=== PATIENT | male | born 1995 | race Caucasian/White ===

== ENCOUNTER 2022-12-12 23:46 | Inpatient (IN) | payer OTHER ==
[~2022-12-12] VITALS: Ht 172.7 cm; Wt 84.8 kg
[2022-12-12 00:05] VITALS: PULSE 112; RESP 18; O2SAT 100
[2022-12-12 23:35] VITALS: PULSE 72; RESP 20; O2SAT 100
[2022-12-13] VITALS (10 sets, daily range): BP systolic 98–124; BP diastolic 43–58; PULSE 91–113; RESP 18; TEMP 96.9–97.5; O2SAT 94–100
[2022-12-13 00:12] LABS: LYMPHOCYTES # (AUTO) 6.1 K/uL (1.0-4.8); MEAN CORPUSCULAR VOLUME 99 fL (80-100); MONOCYTES # (AUTO) 0.4 K/uL (0.1-1.0)
[2022-12-13 00:16] LABS: BASOPHILS % (AUTO) 0.7 % (0.0-2.0); EOSINOPHILS % (AUTO) 1.9 % (1.0-6.0); HEMATOCRIT 49.7 % (41-53); HEMOGLOBIN 14.7 g/dL (13.5-17.5); LYMPHOCYTES % (AUTO) 31.8 % (22.0-44.0); MEAN CORPUSCULAR HEMOGLOBIN 29.3 pg (26.0-34.0); MEAN CORPUSCULAR HGB CONC 29.5 G/dL (31.0-37.0); NEUTROPHILS # (AUTO) 12.2 K/uL (1.8-7.7); NEUTROPHILS % (AUTO) 63.6 % (40.0-70.0); PLATELET COUNT (AUTO) 214 K/uL (150-450); RED CELL DISTRIBUTION WIDTH 15.4 % (11.5-14.5)
[2022-12-13 00:17] LABS: APPEARANCE,URINE CLEAR (CLEAR); BILIRUBIN,URINE NEGATIVE (NEGATIVE); GLUCOSE, URINE (UA) NEGATIVE (NEGATIVE); KETONES,URINE NEGATIVE (NEGATIVE); LEUKOCYTE ESTERASE ,URINE NEGATIVE (NEGATIVE); NITRATE,URINE NEGATIVE (NEGATIVE); OCCULT BLOOD,URINE NEGATIVE (NEGATIVE); PH,URINE 6.5 (5.0-8.0); PROTEIN,URINE TRACE mg/dL (NEGATIVE); SPECIFIC GRAVITIY, URINE 1.032 (1.003-1.030); UROBILINOGEN,URINE <=1.0 mg/dL (<=1.0)
[2022-12-13 00:24] LABS: ANION GAP 26 mmol/L (8-16); CARBON DIOXIDE 16 mmol/L (22-29); CHLORIDE 103 mmol/L (98-107); CREATININE 2.09 mg/dL (0.60-1.30); GLOMERULAR FILTR. RATE CALC 38 mL/min (>60); GLUCOSE,RANDOM 222 mg/dL (70-110); POTASSIUM 4.8 mmol/L (3.5-5.1); SODIUM SERUM 145 mmol/L (136-145)
[2022-12-13 00:24] LABS: AMPHET/METH SCREEN,URINE NEGATIVE (NEGATIVE); BARBITURATE SCREEN, URINE NEGATIVE (NEGATIVE); BENZODIAZEPINES SCREEN,URINE NEGATIVE (NEGATIVE); CANNABINOID SCREEN,URINE POSITIVE (NEGATIVE); COCAINE SCREEN,URINE NEGATIVE (NEGATIVE); METHADONE SCREEN, URINE NEGATIVE (NEGATIVE); OPIATE SCREEN,URINE NEGATIVE (NEGATIVE); PHENCYCLIDINE SCREEN,URINE NEGATIVE (NEGATIVE)
[2022-12-13 00:35] LABS: BACTERIA,URINE None Seen /HPF (None Seen); RBC,URINE 0-2 /HPF (0-2); SQUAMOUS EPITHELIAL CELL,UR Rare /LPF (None Seen); WBC,URINE 0-2 /HPF (0-5)
[2022-12-13 00:49] LABS: ALANINE AMINOTRANSFERASE 228 U/L (12-78); ALBUMIN 3.5 g/dL (3.4-5.0); ALKALINE PHOSPHATASE 89 U/L (46-116); ASPARTATE AMINOTRANSFERASE 272 U/L (15-37); BILIRUBIN,TOTAL 0.8 mg/dL (0.1-1.0); LIPASE 225 U/L (73-393); TOTAL PROTEIN, SERUM 6.9 g/dL (6.4-8.2)
[2022-12-13 00:52] LABS: CREATINE KINASE, TOTAL ONLY 2174 U/L (39-308)
[2022-12-13 00:54] LABS: LACTIC ACID 21.7 mmol/L (0.4-2.0)
[2022-12-13 02:15] LABS: ABG BASE EXCESS -10.4 mmol/L (-2.0-3.0); ABG CARBOXYHEMOGLOBIN 1.2 % (0.0-3.0); ABG HCO3 16.3 mmol/L (22.0-26.0); ABG METHEMOGLOBIN 0.5 % (0.0-1.5); ABG OXYGEN CONTENT 23.5 mL/dL (15.0-23.0); ABG OXYGEN SATURATION 99.1 % (95.0-98.0); ABG OXYHEMOGLOBIN 97.4 % (94.0-100.0); ABG PCO2 47 mmHg (35-45); ABG TOTAL HEMOGLOBIN 16.8 G/dL (12.0-18.0); PO2, ARTERIAL BG 235.1 mmHg (80.0-100.0); SOURCE, BLOOD GAS ARTERIAL; TEMPERATURE, FAHRENHEIT, BG 95.2 FAHREN (96.0-98.6)
[2022-12-13 02:17] LABS: ABG PH 7.197 (7.350-7.450); O2 DEVICE,BLOOD GAS VENTILATOR (ROOM AIR); PEEP,BG 5 cm H2O; SITE, BLOOD GAS RT RADIAL; VT, ABG 450 ml
[2022-12-13 03:07] LABS: COVID AG,FIA SOURCE NASOPHARYNGEAL
[2022-12-13] MEDS: PIPERACILLIN/TAZO 3.375 GM/D5W 50 ML IV SCH ×4 (03:35→23:32)
[2022-12-13 04:46] LABS: ABG BASE EXCESS -11.4 mmol/L (-2.0-3.0); ABG CARBOXYHEMOGLOBIN 0.5 % (0.0-3.0); ABG HCO3 16.2 mmol/L (22.0-26.0); ABG METHEMOGLOBIN 0.4 % (0.0-1.5); ABG OXYGEN CONTENT 23.1 mL/dL (15.0-23.0); ABG OXYGEN SATURATION 98.3 % (95.0-98.0); ABG OXYHEMOGLOBIN 97.4 % (94.0-100.0); ABG PCO2 38 mmHg (35-45); ABG TOTAL HEMOGLOBIN 16.7 G/dL (12.0-18.0); PO2, ARTERIAL BG 134.1 mmHg (80.0-100.0); TEMPERATURE, FAHRENHEIT, BG 95.1 FAHREN (96.0-98.6)
[2022-12-13 04:47] LABS: ABG PH 7.247 (7.350-7.450); O2 DEVICE,BLOOD GAS VENTILATOR (ROOM AIR); SITE, BLOOD GAS RT FEMORAL; SOURCE, BLOOD GAS ARTERIAL LINE; VT, ABG 500 ml
[2022-12-13 04:48] LABS: PEEP,BG 5 cm H2O; SPONTANEOUS VT, BG 502 ml
[2022-12-13] MEDS ORDERED: SODIUM CHLORIDE 0.9% 1,000 ML IV ONE ×2 (05:15)
[2022-12-13] MEDS: NOREPINEPHRINE 8 MG/0.9 % NACL 250 ML IV PRN ×2 (07:45→16:00)
[2022-12-13] MEDS: PHENYLEPHRINE 200 MG/D5%-WATER 250 ML IV PRN (08:44)
[2022-12-13] MEDS ORDERED: HYDROCODONE/ACETAMINOPHEN 5-325 MG TABLET PO PRN (09:00)
[2022-12-13] MEDS ORDERED: ONDANSETRON HCL 4 MG/2 ML VIAL IVP PRN (09:00)
[2022-12-13] MEDS ORDERED: BISACODYL 10 MG RECTAL RECTAL SUPPOSITORY PR PRN (09:00)
[2022-12-13] MEDS ORDERED: MORPHINE SULFATE 2 MG/ML SYRINGE IVP PRN (09:00)
[2022-12-13] MEDS ORDERED: ZOLPIDEM TARTRATE 5 MG TABLET PO PRN (09:00)
[2022-12-13] MEDS ORDERED: PANTOPRAZOLE SODIUM 40 MG DR TABLET PO SCH (09:00)
[2022-12-13] MEDS ORDERED: ACETAMINOPHEN 325 MG TABLET PO PRN (09:00)
[2022-12-13] MEDS ORDERED: MAGNESIUM HYDROXIDE SUSPENSION 30 ML UDCUP PO PRN (09:00)
[2022-12-13] MEDS: DOCUSATE SODIUM 100 MG CAPSULE PO SCH ×2 (09:00→19:47)
[2022-12-13] MEDS: DEXTROSE IV SCH (12:22)
[2022-12-13] MEDS: SODIUM BICARBONATE IV SCH (12:22)
[2022-12-13] MEDS: SODIUM CHL IV SCH (12:22)
[2022-12-13] MEDS: PANTOPRAZOLE SODIUM 80 MG in SODIUM CHLORIDE 0.9% 100 ML IV SCH (15:40)
[2022-12-13] MEDS ORDERED: NOREPINEPHRINE 8 MG/0.9 % NACL 250 ML IV ONE (15:48)
[2022-12-13 15:59] LABS: CREATININE 3.97 mg/dL (0.60-1.30); MAGNESIUM 2.4 mg/dL (1.80-2.40); PHOSPHORUS 3.8 mg/dL (2.5-4.9); POTASSIUM 3.3 mmol/L (3.5-5.1)
[2022-12-13] MEDS ORDERED: HEPARIN SODIUM,PORCINE 5,000 UNITS/ML VIAL SQ SCH (16:00)
[2022-12-13] MEDS ORDERED: NOREPINEPHRINE 8 MG/0.9 % NACL 250 ML IV PRN (16:00)
[2022-12-13] MEDS ORDERED: SODIUM CHLORIDE 0.9% 250 ML IV ONE (23:34)
[2022-12-14] VITALS (14 sets, daily range): BP systolic 90–126; BP diastolic 44–61; PULSE 88–103; RESP 18; TEMP 95.2–96.6; O2SAT 99–100
[2022-12-14] MEDS: PANTOPRAZOLE SODIUM 80 MG in SODIUM CHLORIDE 0.9% 100 ML IV SCH ×3 (00:08→20:21)
[2022-12-14] MEDS: SODIUM BICARBONATE IV SCH ×2 (02:09→15:10)
[2022-12-14] MEDS: DEXTROSE IV SCH ×2 (02:09→15:10)
[2022-12-14] MEDS: SODIUM CHL IV SCH ×2 (02:09→15:10)
[2022-12-14] MEDS: PIPERACILLIN/TAZO 3.375 GM/D5W 50 ML IV SCH ×4 (04:48→23:19)
[2022-12-14 05:29] LABS: BASOPHILS % (AUTO) 0.3 % (0.0-2.0); EOSINOPHILS % (AUTO) 0.6 % (1.0-6.0); HEMOGLOBIN 18.2 g/dL (13.5-17.5); LYMPHOCYTES # (AUTO) 1.1 K/uL (1.0-4.8); LYMPHOCYTES % (AUTO) 5.4 % (22.0-44.0); MEAN CORPUSCULAR HEMOGLOBIN 29.2 pg (26.0-34.0); MEAN CORPUSCULAR HGB CONC 32.6 G/dL (31.0-37.0); MEAN CORPUSCULAR VOLUME 90 fL (80-100); MONOCYTES # (AUTO) 0.5 K/uL (0.1-1.0); MONOCYTES % (AUTO) 2.4 % (2.0-9.0); NEUTROPHILS # (AUTO) 18.4 K/uL (1.8-7.7); PLATELET COUNT (AUTO) 157 K/uL (150-450); RED BLOOD CELL COUNT(AUTO) 6.24 MIL/uL (4.50-5.90); RED CELL DISTRIBUTION WIDTH 14.3 % (11.5-14.5)
[2022-12-14 05:49] LABS: CALCIUM, TOTAL 6.5 mg/dL (8.8-10.5); CREATININE 5.2 mg/dL (0.60-1.30); POTASSIUM 3.6 mmol/L (3.5-5.1)
[2022-12-14 06:05] LABS: NEUTROPHILS % (AUTO) 91.3 % (40.0-70.0)
[2022-12-14] MEDS: DOCUSATE SODIUM 100 MG CAPSULE PO SCH ×2 (08:52→20:17)
[2022-12-14] MEDS ORDERED: SODIUM CHLORIDE 0.9% 100 ML ONE (09:29)
[2022-12-14] MEDS ORDERED: IOHEXOL 350 MG/ML 100 ML VIAL ONE (09:29)
[2022-12-14 14:11] LABS: ABG A-A DIFF O2 78.4 mmHg (10-20.0); ABG BASE EXCESS -12.2 mmol/L (-2.0-3.0); ABG CARBOXYHEMOGLOBIN 0.2 % (0.0-3.0); ABG HCO3 16.1 mmol/L (22.0-26.0); ABG METHEMOGLOBIN 0.4 % (0.0-1.5); ABG OXYGEN CONTENT 27.2 mL/dL (15.0-23.0); ABG OXYGEN SATURATION 98.7 % (95.0-98.0); ABG OXYHEMOGLOBIN 98.1 % (94.0-100.0); ABG PCO2 35 mmHg (35-45); ABG PH 7.255 (7.350-7.450); ABG TOTAL HEMOGLOBIN 19.6 G/dL (12.0-18.0); O2 DEVICE,BLOOD GAS VENTILATOR (ROOM AIR); PEEP,BG 5 cm H2O; PO2, ARTERIAL BG 132.6 mmHg (80.0-100.0); SITE, BLOOD GAS ARTERIAL LINE; SOURCE, BLOOD GAS ARTERIAL; VT, ABG 500 ml
[2022-12-15] VITALS (15 sets, daily range): BP systolic 86–133; BP diastolic 53–75; PULSE 84–94; RESP 18; TEMP 96–96.6; O2SAT 95–100
[2022-12-15 05:26] LABS: BASOPHILS % (AUTO) 0.5 % (0.0-2.0); EOSINOPHILS % (AUTO) 4.1 % (1.0-6.0); HEMOGLOBIN 16.9 g/dL (13.5-17.5); LYMPHOCYTES % (AUTO) 6.6 % (22.0-44.0); MEAN CORPUSCULAR HEMOGLOBIN 29.2 pg (26.0-34.0); MEAN CORPUSCULAR HGB CONC 33.1 G/dL (31.0-37.0); MEAN CORPUSCULAR VOLUME 88 fL (80-100); MONOCYTES # (AUTO) 0.7 K/uL (0.1-1.0); MONOCYTES % (AUTO) 4.3 % (2.0-9.0); NEUTROPHILS # (AUTO) 13.2 K/uL (1.8-7.7); NEUTROPHILS % (AUTO) 84.5 % (40.0-70.0); PLATELET COUNT (AUTO) 99 K/uL (150-450); RED BLOOD CELL COUNT(AUTO) 5.78 MIL/uL (4.50-5.90); RED CELL DISTRIBUTION WIDTH 14.3 % (11.5-14.5)
[2022-12-15 05:40] LABS: MAGNESIUM 1.7 mg/dL (1.80-2.40); PHOSPHORUS 4.4 mg/dL (2.5-4.9)
[2022-12-15 05:44] LABS: CALCIUM, TOTAL 6.5 mg/dL (8.8-10.5)
[2022-12-15 05:50] LABS: POTASSIUM 2.9 mmol/L (3.5-5.1)
[2022-12-15 05:57] LABS: PLATELET MORPHOLOGY COMMENT LARGE PLTS PRESENT
[2022-12-15] MEDS: DEXTROSE IV SCH ×2 (06:03→19:52)
[2022-12-15] MEDS: SODIUM CHL IV SCH ×2 (06:03→19:52)
[2022-12-15] MEDS: SODIUM BICARBONATE IV SCH ×2 (06:03→19:52)
[2022-12-15] MEDS: PIPERACILLIN/TAZO 3.375 GM/D5W 50 ML IV SCH ×2 (06:08→11:28)
[2022-12-15] MEDS ORDERED: POTASSIUM CHL 10 MEQ/WATER 50 ML IV ONE ×2 (06:30→17:45)
[2022-12-15] MEDS: PANTOPRAZOLE SODIUM 80 MG in SODIUM CHLORIDE 0.9% 100 ML IV SCH ×2 (08:20→19:51)
[2022-12-15] MEDS: DOCUSATE SODIUM 100 MG CAPSULE PO SCH ×2 (09:00→19:52)
[2022-12-15] MEDS: PHENYLEPHRINE 200 MG/D5%-WATER 250 ML IV PRN (19:54)
[2022-12-15] MEDS: PIPERACILLIN SODIUM/TAZOBACTAM 2.25 GM in DEXTROSE 5%-WATER 50 ML IV SCH (22:57)
[2022-12-16] VITALS (14 sets, daily range): BP systolic 110–139; BP diastolic 60–78; PULSE 95–122; RESP 18; TEMP 95–98.6; O2SAT 98–100
[2022-12-16] MEDS ORDERED: SODIUM CHLORIDE 0.9% 250 ML IV ONE ×2 (03:56→06:39)
[2022-12-16] MEDS: PIPERACILLIN SODIUM/TAZOBACTAM 2.25 GM in DEXTROSE 5%-WATER 50 ML IV SCH ×3 (05:13→21:59)
[2022-12-16] MEDS: PANTOPRAZOLE SODIUM 80 MG in SODIUM CHLORIDE 0.9% 100 ML IV SCH ×2 (05:13→15:36)
[2022-12-16 06:15] LABS: BASOPHILS % (AUTO) 0.3 % (0.0-2.0); EOSINOPHILS % (AUTO) 3.4 % (1.0-6.0); HEMATOCRIT 48.2 % (41-53); HEMOGLOBIN 15.8 g/dL (13.5-17.5); LYMPHOCYTES # (AUTO) 0.6 K/uL (1.0-4.8); LYMPHOCYTES % (AUTO) 4.9 % (22.0-44.0); MEAN CORPUSCULAR HEMOGLOBIN 28.6 pg (26.0-34.0); MEAN CORPUSCULAR HGB CONC 32.9 G/dL (31.0-37.0); MEAN CORPUSCULAR VOLUME 87 fL (80-100); MONOCYTES # (AUTO) 0.6 K/uL (0.1-1.0); MONOCYTES % (AUTO) 4.5 % (2.0-9.0); NEUTROPHILS # (AUTO) 10.9 K/uL (1.8-7.7); RED BLOOD CELL COUNT(AUTO) 5.53 MIL/uL (4.50-5.90); RED CELL DISTRIBUTION WIDTH 14.2 % (11.5-14.5)
[2022-12-16 06:30] LABS: CALCIUM, TOTAL 6.7 mg/dL (8.8-10.5); CREATININE 9.46 mg/dL (0.60-1.30); POTASSIUM 4.2 mmol/L (3.5-5.1)
[2022-12-16 06:40] LABS: NEUTROPHILS % (AUTO) 86.9 % (40.0-70.0)
[2022-12-16 06:41] LABS: PLATELET COUNT (AUTO) 89 K/uL (150-450); PLATELET MORPHOLOGY COMMENT LARGE PLTS PRESENT
[2022-12-16 06:51] LABS: MAGNESIUM 1.4 mg/dL (1.80-2.40); PHOSPHORUS 5.3 mg/dL (2.5-4.9)
[2022-12-16] MEDS: DOCUSATE SODIUM 100 MG CAPSULE PO SCH ×2 (08:33→20:25)
[2022-12-16] MEDS: SODIUM CHL IV SCH (11:54)
[2022-12-16] MEDS: DEXTROSE IV SCH (11:54)
[2022-12-16] MEDS: SODIUM BICARBONATE IV SCH (11:54)
[2022-12-16] MEDS: PHENYLEPHRINE 200 MG/D5%-WATER 250 ML IV PRN (15:36)
[2022-12-16] MEDS ORDERED: SODIUM CHLORIDE 0.9% 500 ML IV ONE (20:03)
[2022-12-16] MEDS ORDERED: FUROSEMIDE 40 MG/4 ML VIAL IVP ONE (21:45)
[2022-12-16 22:05] LABS: BASOPHILS % (AUTO) 0.3 % (0.0-2.0); EOSINOPHILS % (AUTO) 3.5 % (1.0-6.0); HEMATOCRIT 43.9 % (41-53); HEMOGLOBIN 14.1 g/dL (13.5-17.5); LYMPHOCYTES # (AUTO) 0.8 K/uL (1.0-4.8); MEAN CORPUSCULAR HEMOGLOBIN 28.1 pg (26.0-34.0); MEAN CORPUSCULAR HGB CONC 32.1 G/dL (31.0-37.0); MEAN CORPUSCULAR VOLUME 88 fL (80-100); MONOCYTES # (AUTO) 0.9 K/uL (0.1-1.0); MONOCYTES % (AUTO) 6.4 % (2.0-9.0); NEUTROPHILS # (AUTO) 11.2 K/uL (1.8-7.7); NEUTROPHILS % (AUTO) 83.8 % (40.0-70.0); PLATELET COUNT (AUTO) 77 K/uL (150-450); RED BLOOD CELL COUNT(AUTO) 5.01 MIL/uL (4.50-5.90); RED CELL DISTRIBUTION WIDTH 14.3 % (11.5-14.5)
[2022-12-16 22:14] LABS: INR 1.7 (0.9-1.1); PROTHROMBIN TIME 16.9 SEC (9.4-11.6)
[2022-12-16 22:15] LABS: ALBUMIN 1.6 g/dL (3.4-5.0); BILIRUBIN,TOTAL 5.6 mg/dL (0.1-1.0); CALCIUM, TOTAL 6.4 mg/dL (8.8-10.5); CREATININE 10.97 mg/dL (0.60-1.30); POTASSIUM 5.5 mmol/L (3.5-5.1); TOTAL PROTEIN, SERUM 4.8 g/dL (6.4-8.2)
[2022-12-16 22:21] LABS: ABG BASE EXCESS -6.5 mmol/L (-2.0-3.0); ABG CARBOXYHEMOGLOBIN 0.8 % (0.0-3.0); ABG HCO3 19.4 mmol/L (22.0-26.0); ABG METHEMOGLOBIN 0.1 % (0.0-1.5); ABG OXYGEN CONTENT 20.7 mL/dL (15.0-23.0); ABG OXYGEN SATURATION 98.3 % (95.0-98.0); ABG OXYHEMOGLOBIN 97.4 % (94.0-100.0); ABG PCO2 44 mmHg (35-45); PO2, ARTERIAL BG 114.6 mmHg (80.0-100.0); SOURCE, BLOOD GAS ARTERIAL
[2022-12-16 22:28] LABS: PLATELET MORPHOLOGY COMMENT LARGE PLTS PRESENT
[2022-12-16 22:29] LABS: ABG PH 7.284 (7.350-7.450); SITE, BLOOD GAS ALINE
[2022-12-16 22:30] LABS: O2 DEVICE,BLOOD GAS VENT (ROOM AIR); TEMPERATURE, FAHRENHEIT, BG 98.6 FAHREN (96.0-98.6)
[2022-12-16 22:31] LABS: PEEP,BG 5 cm H2O; VT, ABG 500 ml
[2022-12-17] VITALS (17 sets, daily range): BP systolic 130–184; BP diastolic 70–90; PULSE 92–130; RESP 14–22; TEMP 96.8–100; O2SAT 98–100
[2022-12-17] MEDS: DEXTROSE IV SCH (01:10)
[2022-12-17] MEDS: SODIUM BICARBONATE IV SCH (01:10)
[2022-12-17] MEDS: SODIUM CHL IV SCH (01:10)
[2022-12-17] MEDS: PANTOPRAZOLE SODIUM 80 MG in SODIUM CHLORIDE 0.9% 100 ML IV SCH (02:03)
[2022-12-17 05:35] LABS: EOSINOPHILS % (AUTO) 1.3 % (1.0-6.0); HEMOGLOBIN 13.7 g/dL (13.5-17.5); LYMPHOCYTES # (AUTO) 0.5 K/uL (1.0-4.8); LYMPHOCYTES % (AUTO) 4.4 % (22.0-44.0); MEAN CORPUSCULAR HEMOGLOBIN 29.2 pg (26.0-34.0); MEAN CORPUSCULAR HGB CONC 33.3 G/dL (31.0-37.0); MEAN CORPUSCULAR VOLUME 88 fL (80-100); NEUTROPHILS # (AUTO) 10.5 K/uL (1.8-7.7); PLATELET COUNT (AUTO) 70 K/uL (150-450); RED BLOOD CELL COUNT(AUTO) 4.68 MIL/uL (4.50-5.90); RED CELL DISTRIBUTION WIDTH 14.3 % (11.5-14.5)
[2022-12-17] MEDS: PIPERACILLIN SODIUM/TAZOBACTAM 2.25 GM in DEXTROSE 5%-WATER 50 ML IV SCH ×3 (05:44→21:09)
[2022-12-17 05:47] LABS: ABG BASE EXCESS -6.5 mmol/L (-2.0-3.0); ABG CARBOXYHEMOGLOBIN 0.8 % (0.0-3.0); ABG HCO3 19.8 mmol/L (22.0-26.0); ABG METHEMOGLOBIN 0.1 % (0.0-1.5); ABG OXYGEN CONTENT 19.9 mL/dL (15.0-23.0); ABG OXYGEN SATURATION 98.7 % (95.0-98.0); ABG OXYHEMOGLOBIN 97.8 % (94.0-100.0); ABG PCO2 36 mmHg (35-45); ABG PH 7.344 (7.350-7.450); ABG TOTAL HEMOGLOBIN 14.3 G/dL (12.0-18.0); SOURCE, BLOOD GAS ARTERIAL; TEMPERATURE, FAHRENHEIT, BG 98.6 FAHREN (96.0-98.6)
[2022-12-17 05:48] LABS: O2 DEVICE,BLOOD GAS VENTILATOR (ROOM AIR); PEEP,BG 5 cm H2O; SITE, BLOOD GAS ARTERIAL LINE; VT, ABG 500 ml
[2022-12-17 05:49] LABS: NEUTROPHILS % (AUTO) 85.3 % (40.0-70.0)
[2022-12-17 05:52] LABS: ALBUMIN 1.6 g/dL (3.4-5.0); BILIRUBIN,TOTAL 5.6 mg/dL (0.1-1.0); CALCIUM, TOTAL 6.4 mg/dL (8.8-10.5); CREATININE 11.73 mg/dL (0.60-1.30); POTASSIUM 5.2 mmol/L (3.5-5.1); TOTAL PROTEIN, SERUM 4.8 g/dL (6.4-8.2)
[2022-12-17 05:54] LABS: INR 1.6 (0.9-1.1); PROTHROMBIN TIME 15.9 SEC (9.4-11.6)
[2022-12-17] MEDS: DOCUSATE SODIUM 100 MG CAPSULE PO SCH ×2 (08:49→21:00)
[2022-12-17 10:23] LABS: HEMATOCRIT 39.2 % (41-53); HEMOGLOBIN 12.9 g/dL (13.5-17.5); MEAN CORPUSCULAR HEMOGLOBIN 28.6 pg (26.0-34.0); MEAN CORPUSCULAR VOLUME 87 fL (80-100); PLATELET COUNT (AUTO) 67 K/uL (150-450); RED BLOOD CELL COUNT(AUTO) 4.52 MIL/uL (4.50-5.90); RED CELL DISTRIBUTION WIDTH 14.6 % (11.5-14.5)
[2022-12-17 10:41] LABS: INR 1.5 (0.9-1.1); PROTHROMBIN TIME 15.4 SEC (9.4-11.6)
[2022-12-17 10:54] LABS: ALBUMIN 1.4 g/dL (3.4-5.0); BILIRUBIN,TOTAL 5.3 mg/dL (0.1-1.0); CALCIUM, TOTAL 6.3 mg/dL (8.8-10.5); CREATININE 11.91 mg/dL (0.60-1.30); POTASSIUM 4.2 mmol/L (3.5-5.1); TOTAL PROTEIN, SERUM 4.6 g/dL (6.4-8.2)
[2022-12-17 12:03] LABS: ABG BASE EXCESS -2.6 mmol/L (-2.0-3.0); ABG CARBOXYHEMOGLOBIN 0.7 % (0.0-3.0); ABG METHEMOGLOBIN 0.3 % (0.0-1.5); ABG OXYGEN CONTENT 18.9 mL/dL (15.0-23.0); ABG OXYGEN SATURATION 98.9 % (95.0-98.0); ABG OXYHEMOGLOBIN 97.9 % (94.0-100.0); ABG PCO2 33 mmHg (35-45); ABG PH 7.437 (7.350-7.450); ABG TOTAL HEMOGLOBIN 13.6 G/dL (12.0-18.0); PO2, ARTERIAL BG 136.5 mmHg (80.0-100.0); SOURCE, BLOOD GAS ARTERIAL
[2022-12-17 12:04] LABS: ABG A-A DIFF O2 75.3 mmHg (10-20.0); O2 DEVICE,BLOOD GAS VENTILATOR (ROOM AIR); SITE, BLOOD GAS ARTERIAL LINE; VT, ABG 500 ml
[2022-12-17 12:05] LABS: PEEP,BG 5 cm H2O; SPONTANEOUS VT, BG 509 ml
[2022-12-17 12:22] LABS: BAND NEUTROPHILS % (MANUAL) 29 % (0-5); LYMPHOCYTES % (MANUAL) 9 % (22-44); MONOCYTES % (MANUAL) 2 % (2-9); SEGMENTED NEUTROPHILS % 60 % (40-70)
[2022-12-17 15:15] LABS: ABG CARBOXYHEMOGLOBIN 0.5 % (0.0-3.0); ABG HCO3 25.1 mmol/L (22.0-26.0); ABG METHEMOGLOBIN 0.3 % (0.0-1.5); ABG OXYGEN CONTENT 18.8 mL/dL (15.0-23.0); ABG OXYGEN SATURATION 98.9 % (95.0-98.0); ABG OXYHEMOGLOBIN 98.1 % (94.0-100.0); ABG PCO2 33 mmHg (35-45); ABG PH 7.468 (7.350-7.450); ABG TOTAL HEMOGLOBIN 13.5 G/dL (12.0-18.0); PO2, ARTERIAL BG 140.9 mmHg (80.0-100.0); SITE, BLOOD GAS ARTERIAL LINE; SOURCE, BLOOD GAS ARTERIAL; TEMPERATURE, FAHRENHEIT, BG 98.7 FAHREN (96.0-98.6)
[2022-12-17 15:16] LABS: ABG A-A DIFF O2 69.7 mmHg (10-20.0); O2 DEVICE,BLOOD GAS VENTILATOR (ROOM AIR); PEEP,BG 5 cm H2O; SPONTANEOUS VT, BG 605 ml; VT, ABG 600 ml
[2022-12-17 15:53] LABS: ABG CARBOXYHEMOGLOBIN 0.6 % (0.0-3.0); ABG HCO3 25.1 mmol/L (22.0-26.0); ABG METHEMOGLOBIN 0.3 % (0.0-1.5); ABG OXYGEN CONTENT 20.1 mL/dL (15.0-23.0); ABG OXYGEN SATURATION 99.8 % (95.0-98.0); ABG OXYHEMOGLOBIN 98.9 % (94.0-100.0); ABG PCO2 34 mmHg (35-45); ABG PH 7.464 (7.350-7.450); ABG TOTAL HEMOGLOBIN 13.5 G/dL (12.0-18.0); PO2, ARTERIAL BG 501.3 mmHg (80.0-100.0); SOURCE, BLOOD GAS ARTERIAL
[2022-12-17 15:54] LABS: ABG A-A DIFF O2 177.2 mmHg (10-20.0); O2 DEVICE,BLOOD GAS VENTILATOR (ROOM AIR); SITE, BLOOD GAS ARTERIAL LINE; VT, ABG 600 ml
[2022-12-17 15:55] LABS: PEEP,BG 5 cm H2O; SPONTANEOUS VT, BG 612 ml
[2022-12-17 16:14] LABS: HEMOGLOBIN 12.9 g/dL (13.5-17.5); MEAN CORPUSCULAR HEMOGLOBIN 29.1 pg (26.0-34.0); MEAN CORPUSCULAR VOLUME 86 fL (80-100); RED BLOOD CELL COUNT(AUTO) 4.44 MIL/uL (4.50-5.90); RED CELL DISTRIBUTION WIDTH 13.9 % (11.5-14.5)
[2022-12-17 16:19] LABS: PLATELET COUNT (AUTO) 66 K/uL (150-450)
[2022-12-17 16:27] LABS: INR 1.5 (0.9-1.1); PROTHROMBIN TIME 15.1 SEC (9.4-11.6)
[2022-12-17 16:30] LABS: CREATININE 12.45 mg/dL (0.60-1.30); POTASSIUM 4.1 mmol/L (3.5-5.1)
[2022-12-17] MEDS ORDERED: ALBUMIN HUMAN 25%-50GM/200ML 200 ML IV ONE (16:30)
[2022-12-17] MEDS ORDERED: FUROSEMIDE 100 MG/10 ML VIAL IVP ONE (16:30)
[2022-12-17] MEDS ORDERED: MethylPREDNISolone SOD SUCC 1,000 MG in SODIUM CHLORIDE 0.9% 50 ML IV ONE (16:30)
[2022-12-17 16:31] LABS: ALBUMIN 1.4 g/dL (3.4-5.0); BILIRUBIN,TOTAL 5.4 mg/dL (0.1-1.0); CALCIUM, TOTAL 6.5 mg/dL (8.8-10.5); PHOSPHORUS 4.7 mg/dL (2.5-4.9); TOTAL PROTEIN, SERUM 4.8 g/dL (6.4-8.2)
[2022-12-17 16:46] LABS: CREATINE KINASE, TOTAL ONLY 727 U/L (39-308)
[2022-12-17 16:49] LABS: BAND NEUTROPHILS % (MANUAL) 25 % (0-5); EOSINOPHILS % (MANUAL) 2 % (1-6); LYMPHOCYTES % (MANUAL) 10 % (22-44); MONOCYTES % (MANUAL) 3 % (2-9); SEGMENTED NEUTROPHILS % 60 % (40-70)
[2022-12-17 16:57] LABS: LACTIC ACID 2.6 mmol/L (0.4-2.0)
[2022-12-17 19:02] LABS: ABG BASE EXCESS -1.5 mmol/L (-2.0-3.0); ABG CARBOXYHEMOGLOBIN 0.5 % (0.0-3.0); ABG HCO3 23.2 mmol/L (22.0-26.0); ABG OXYGEN CONTENT 19.2 mL/dL (15.0-23.0); ABG OXYGEN SATURATION 98.4 % (95.0-98.0); ABG OXYHEMOGLOBIN 97.9 % (94.0-100.0); ABG PCO2 44 mmHg (35-45); ABG PH 7.356 (7.350-7.450); ABG TOTAL HEMOGLOBIN 13.8 G/dL (12.0-18.0); O2 DEVICE,BLOOD GAS VENTILATOR (ROOM AIR); PEEP,BG 5 cm H2O; PO2, ARTERIAL BG 131.5 mmHg (80.0-100.0); SITE, BLOOD GAS ARTERIAL LINE; SOURCE, BLOOD GAS ARTERIAL; TEMPERATURE, FAHRENHEIT, BG 98.6 FAHREN (96.0-98.6); VT, ABG 600 ml
[2022-12-17] MEDS: VANCOMYCIN 1GM/WATER(PEG/NADA) 200 ML IV SCH (19:06)
[2022-12-17] MEDS ORDERED: SODIUM CHLORIDE 0.9% 250 ML IV ONE (19:43)
[2022-12-17 20:34] LABS: HEMATOCRIT 38.3 % (41-53); HEMOGLOBIN 12.6 g/dL (13.5-17.5); MEAN CORPUSCULAR HEMOGLOBIN 28.4 pg (26.0-34.0); MEAN CORPUSCULAR VOLUME 86 fL (80-100); PLATELET COUNT (AUTO) 64 K/uL (150-450); RED BLOOD CELL COUNT(AUTO) 4.45 MIL/uL (4.50-5.90); RED CELL DISTRIBUTION WIDTH 14.1 % (11.5-14.5)
[2022-12-17 20:47] LABS: ALBUMIN 1.4 g/dL (3.4-5.0); BILIRUBIN,TOTAL 5.6 mg/dL (0.1-1.0); CALCIUM, TOTAL 6.5 mg/dL (8.8-10.5); CREATININE 12.98 mg/dL (0.60-1.30); PHOSPHORUS 5.5 mg/dL (2.5-4.9); POTASSIUM 4.3 mmol/L (3.5-5.1); TOTAL PROTEIN, SERUM 4.9 g/dL (6.4-8.2)
[2022-12-17 20:48] LABS: INR 1.4 (0.9-1.1); PROTHROMBIN TIME 14.8 SEC (9.4-11.6)
[2022-12-17 20:51] LABS: BAND NEUTROPHILS % (MANUAL) 13 % (0-5); EOSINOPHILS % (MANUAL) 2 % (1-6); LYMPHOCYTES % (MANUAL) 11 % (22-44); MONOCYTES % (MANUAL) 8 % (2-9); SEGMENTED NEUTROPHILS % 66 % (40-70)
[2022-12-17 21:07] LABS: MAGNESIUM 1.4 mg/dL (1.80-2.40)
[2022-12-17 21:14] LABS: LACTIC ACID 1.8 mmol/L (0.4-2.0)
[2022-12-17] MEDS ORDERED: LABETALOL HCL 5 MG/ML 20 ML VIAL IVP PRN (22:45)
[2022-12-17] MEDS ORDERED: SODIUM CHLORIDE 0.9% 1,000 ML ONE (22:47)
[2022-12-17 23:22] LABS: ABG BASE EXCESS -3.1 mmol/L (-2.0-3.0); ABG CARBOXYHEMOGLOBIN 0.6 % (0.0-3.0); ABG OXYGEN CONTENT 20.1 mL/dL (15.0-23.0); ABG OXYGEN SATURATION 98.7 % (95.0-98.0); ABG OXYHEMOGLOBIN 98.1 % (94.0-100.0); ABG PCO2 42 mmHg (35-45); ABG PH 7.348 (7.350-7.450); ABG TOTAL HEMOGLOBIN 14.4 G/dL (12.0-18.0); O2 DEVICE,BLOOD GAS VENTILATOR (ROOM AIR); PEEP,BG 5 cm H2O; PO2, ARTERIAL BG 138.5 mmHg (80.0-100.0); SITE, BLOOD GAS ARTERIAL LINE; SOURCE, BLOOD GAS ARTERIAL; TEMPERATURE, FAHRENHEIT, BG 98.6 FAHREN (96.0-98.6); VT, ABG 600 ml
[2022-12-18] VITALS (26 sets, daily range): BP systolic 90–156; BP diastolic 68–88; PULSE 61–101; RESP 14–16; TEMP 96.4–97.5; O2SAT 98–99
[2022-12-18 00:32] LABS: HEMATOCRIT 42.1 % (41-53); HEMOGLOBIN 14.1 g/dL (13.5-17.5); MEAN CORPUSCULAR HEMOGLOBIN 29.2 pg (26.0-34.0); MEAN CORPUSCULAR HGB CONC 33.5 G/dL (31.0-37.0); MEAN CORPUSCULAR VOLUME 87 fL (80-100); PLATELET COUNT (AUTO) 60 K/uL (150-450); RED BLOOD CELL COUNT(AUTO) 4.83 MIL/uL (4.50-5.90); RED CELL DISTRIBUTION WIDTH 14.4 % (11.5-14.5)
[2022-12-18 00:46] LABS: INR 1.3 (0.9-1.1); PROTHROMBIN TIME 13.8 SEC (9.4-11.6)
[2022-12-18 01:09] LABS: BAND NEUTROPHILS % (MANUAL) 24 % (0-5); LYMPHOCYTES % (MANUAL) 6 % (22-44); MONOCYTES % (MANUAL) 3 % (2-9); SEGMENTED NEUTROPHILS % 67 % (40-70)
[2022-12-18 01:11] LABS: POTASSIUM 4.2 mmol/L (3.5-5.1)
[2022-12-18 01:15] LABS: BILIRUBIN,DIRECT 5.6 mg/dL (0.00-0.20); BILIRUBIN,TOTAL 6.8 mg/dL (0.1-1.0); CALCIUM, TOTAL 7.8 mg/dL (8.8-10.5); CREATININE 9.41 mg/dL (0.60-1.30); MAGNESIUM 1.7 mg/dL (1.80-2.40); PHOSPHORUS 4.4 mg/dL (2.5-4.9); TOTAL PROTEIN, SERUM 5.6 g/dL (6.4-8.2)
[2022-12-18 01:16] LABS: ALBUMIN 1.7 g/dL (3.4-5.0)
[2022-12-18 03:18] LABS: ABG BASE EXCESS -3.6 mmol/L (-2.0-3.0); ABG CARBOXYHEMOGLOBIN 0.5 % (0.0-3.0); ABG HCO3 21.7 mmol/L (22.0-26.0); ABG METHEMOGLOBIN 0.3 % (0.0-1.5); ABG OXYGEN CONTENT 18.8 mL/dL (15.0-23.0); ABG OXYHEMOGLOBIN 98.2 % (94.0-100.0); ABG PCO2 41 mmHg (35-45); ABG PH 7.351 (7.350-7.450); ABG TOTAL HEMOGLOBIN 13.4 G/dL (12.0-18.0); O2 DEVICE,BLOOD GAS VENTILATOR (ROOM AIR); PEEP,BG 5 cm H2O; SITE, BLOOD GAS ARTERIAL LINE; SOURCE, BLOOD GAS ARTERIAL; TEMPERATURE, FAHRENHEIT, BG 98.6 FAHREN (96.0-98.6); VT, ABG 600 ml
[2022-12-18 04:16] LABS: HEMATOCRIT 37.8 % (41-53); HEMOGLOBIN 12.7 g/dL (13.5-17.5); MEAN CORPUSCULAR HEMOGLOBIN 29.2 pg (26.0-34.0); MEAN CORPUSCULAR HGB CONC 33.5 G/dL (31.0-37.0); MEAN CORPUSCULAR VOLUME 87 fL (80-100); PLATELET COUNT (AUTO) 50 K/uL (150-450); RED BLOOD CELL COUNT(AUTO) 4.34 MIL/uL (4.50-5.90); RED CELL DISTRIBUTION WIDTH 14.5 % (11.5-14.5)
[2022-12-18 04:27] LABS: INR 1.3 (0.9-1.1); PROTHROMBIN TIME 13.5 SEC (9.4-11.6)
[2022-12-18 04:45] LABS: BAND NEUTROPHILS % (MANUAL) 25 % (0-5); LYMPHOCYTES % (MANUAL) 7 % (22-44); MONOCYTES % (MANUAL) 3 % (2-9); SEGMENTED NEUTROPHILS % 65 % (40-70)
[2022-12-18 04:51] LABS: CREATININE 8.58 mg/dL (0.60-1.30); POTASSIUM 4.5 mmol/L (3.5-5.1)
[2022-12-18 04:52] LABS: ALBUMIN 2.4 g/dL (3.4-5.0); BILIRUBIN,TOTAL 6.5 mg/dL (0.1-1.0); MAGNESIUM 1.8 mg/dL (1.80-2.40); PHOSPHORUS 6.2 mg/dL (2.5-4.9); TOTAL PROTEIN, SERUM 5.9 g/dL (6.4-8.2)
[2022-12-18 04:58] LABS: LACTIC ACID 1.8 mmol/L (0.4-2.0)
[2022-12-18] MEDS: PIPERACILLIN SODIUM/TAZOBACTAM 2.25 GM in DEXTROSE 5%-WATER 50 ML IV SCH ×3 (05:18→21:57)
[2022-12-18] MEDS: MethylPREDNISolone SOD SUCC 500 MG in SODIUM CHLORIDE 0.9% 50 ML IV SCH ×2 (05:18→18:21)
[2022-12-18] MEDS ORDERED: SODIUM CHLORIDE 0.9% 500 ML IV ONE ×2 (05:21→05:35)
[2022-12-18 08:41] LABS: HEMATOCRIT 37.2 % (41-53); HEMOGLOBIN 12.4 g/dL (13.5-17.5); MEAN CORPUSCULAR HGB CONC 33.4 G/dL (31.0-37.0); MEAN CORPUSCULAR VOLUME 87 fL (80-100); PLATELET COUNT (AUTO) 50 K/uL (150-450); RED BLOOD CELL COUNT(AUTO) 4.28 MIL/uL (4.50-5.90); RED CELL DISTRIBUTION WIDTH 14.1 % (11.5-14.5)
[2022-12-18 08:56] LABS: ALBUMIN 2.2 g/dL (3.4-5.0); CALCIUM, TOTAL 7.7 mg/dL (8.8-10.5); CREATININE 9.85 mg/dL (0.60-1.30); PHOSPHORUS 6.5 mg/dL (2.5-4.9); POTASSIUM 4.6 mmol/L (3.5-5.1); TOTAL PROTEIN, SERUM 5.7 g/dL (6.4-8.2)
[2022-12-18] MEDS: DOCUSATE SODIUM 100 MG CAPSULE PO SCH ×2 (09:00→21:00)
[2022-12-18 09:01] LABS: LACTIC ACID 2.2 mmol/L (0.4-2.0)
[2022-12-18 09:08] LABS: INR 1.3 (0.9-1.1); PROTHROMBIN TIME 13.5 SEC (9.4-11.6)
[2022-12-18 09:21] LABS: ABG BASE EXCESS -2.7 mmol/L (-2.0-3.0); ABG CARBOXYHEMOGLOBIN 0.2 % (0.0-3.0); ABG HCO3 22.2 mmol/L (22.0-26.0); ABG METHEMOGLOBIN 0.3 % (0.0-1.5); ABG OXYGEN CONTENT 18.3 mL/dL (15.0-23.0); ABG OXYGEN SATURATION 98.7 % (95.0-98.0); ABG OXYHEMOGLOBIN 98.2 % (94.0-100.0); ABG PCO2 42 mmHg (35-45); ABG PH 7.353 (7.350-7.450); ABG TOTAL HEMOGLOBIN 13.1 G/dL (12.0-18.0); O2 DEVICE,BLOOD GAS VENTILATOR (ROOM AIR); PEEP,BG 5 cm H2O; PO2, ARTERIAL BG 138.6 mmHg (80.0-100.0); SITE, BLOOD GAS ARTERIAL LINE; SOURCE, BLOOD GAS ARTERIAL; SPONTANEOUS VT, BG 606 ml; TEMPERATURE, FAHRENHEIT, BG 96.7 FAHREN (96.0-98.6); VT, ABG 600 ml
[2022-12-18 09:22] LABS: BAND NEUTROPHILS % (MANUAL) 3 % (0-5); LYMPHOCYTES % (MANUAL) 10 % (22-44); MONOCYTES % (MANUAL) 1 % (2-9); SEGMENTED NEUTROPHILS % 86 % (40-70)
[2022-12-18 12:25] LABS: BILIRUBIN,DIRECT 4.6 mg/dL (0.00-0.20); BILIRUBIN,TOTAL 6.1 mg/dL (0.1-1.0)
[2022-12-18 12:48] LABS: HEMATOCRIT 38.4 % (41-53); MEAN CORPUSCULAR HEMOGLOBIN 29.2 pg (26.0-34.0); MEAN CORPUSCULAR HGB CONC 33.9 G/dL (31.0-37.0); MEAN CORPUSCULAR VOLUME 86 fL (80-100); PLATELET COUNT (AUTO) 62 K/uL (150-450); RED BLOOD CELL COUNT(AUTO) 4.45 MIL/uL (4.50-5.90); RED CELL DISTRIBUTION WIDTH 14.2 % (11.5-14.5)
[2022-12-18 12:58] LABS: INR 1.3 (0.9-1.1); PROTHROMBIN TIME 13.2 SEC (9.4-11.6)
[2022-12-18 13:05] LABS: LACTIC ACID 1.5 mmol/L (0.4-2.0)
[2022-12-18 13:06] LABS: BAND NEUTROPHILS % (MANUAL) 4 % (0-5); EOSINOPHILS % (MANUAL) 1 % (1-6); LYMPHOCYTES % (MANUAL) 9 % (22-44); MONOCYTES % (MANUAL) 2 % (2-9); SEGMENTED NEUTROPHILS % 84 % (40-70)
[2022-12-18 13:21] LABS: MAGNESIUM 1.9 mg/dL (1.80-2.40)
[2022-12-18 13:23] LABS: ABG BASE EXCESS -0.7 mmol/L (-2.0-3.0); ABG CARBOXYHEMOGLOBIN 0.6 % (0.0-3.0); ABG HCO3 23.5 mmol/L (22.0-26.0); ABG METHEMOGLOBIN 0.3 % (0.0-1.5); ABG OXYGEN CONTENT 19.1 mL/dL (15.0-23.0); ABG OXYGEN SATURATION 98.4 % (95.0-98.0); ABG OXYHEMOGLOBIN 97.5 % (94.0-100.0); ABG PCO2 45 mmHg (35-45); ABG PH 7.355 (7.350-7.450); ABG TOTAL HEMOGLOBIN 13.8 G/dL (12.0-18.0); O2 DEVICE,BLOOD GAS VENTILATOR (ROOM AIR); PO2, ARTERIAL BG 109.3 mmHg (80.0-100.0); SITE, BLOOD GAS ARTERIAL LINE; SOURCE, BLOOD GAS ARTERIAL; TEMPERATURE, FAHRENHEIT, BG 96.6 FAHREN (96.0-98.6)
[2022-12-18 13:24] LABS: PEEP,BG 5 cm H2O; SPONTANEOUS VT, BG 606 ml; VT, ABG 600 ml
[2022-12-18 13:24] LABS: ALBUMIN 2.4 g/dL (3.4-5.0); BILIRUBIN,TOTAL 5.8 mg/dL (0.1-1.0); CALCIUM, TOTAL 8.2 mg/dL (8.8-10.5); CREATININE 7.26 mg/dL (0.60-1.30); PHOSPHORUS 5.1 mg/dL (2.5-4.9); POTASSIUM 3.9 mmol/L (3.5-5.1); TOTAL PROTEIN, SERUM 6.3 g/dL (6.4-8.2)
[2022-12-18] MEDS ORDERED: HEPARIN SODIUM,PORCINE 1,000 UNITS/ML VIAL IVP ONE (16:41)
[2022-12-18 16:48] LABS: HEMOGLOBIN 12.8 g/dL (13.5-17.5)
[2022-12-18 16:55] LABS: HEMATOCRIT 37.9 % (41-53); MEAN CORPUSCULAR HEMOGLOBIN 29.3 pg (26.0-34.0); MEAN CORPUSCULAR HGB CONC 33.7 G/dL (31.0-37.0); MEAN CORPUSCULAR VOLUME 87 fL (80-100); PLATELET COUNT (AUTO) 60 K/uL (150-450); RED BLOOD CELL COUNT(AUTO) 4.36 MIL/uL (4.50-5.90)
[2022-12-18 16:59] LABS: AMYLASE 105 U/L (25-115); LIPASE 193 U/L (73-393)
[2022-12-18 17:02] LABS: INR 1.3 (0.9-1.1)
[2022-12-18] MEDS ORDERED: SODIUM CHLORIDE 0.9% 100 ML ONE (17:13)
[2022-12-18] MEDS ORDERED: IOHEXOL 350 MG/ML 100 ML VIAL ONE (17:13)
[2022-12-18 17:16] LABS: ALBUMIN 2.3 g/dL (3.4-5.0); BILIRUBIN,TOTAL 5.4 mg/dL (0.1-1.0); CALCIUM, TOTAL 8.4 mg/dL (8.8-10.5); CREATININE 6.17 mg/dL (0.60-1.30); PHOSPHORUS 5.9 mg/dL (2.5-4.9); POTASSIUM 4.3 mmol/L (3.5-5.1); TOTAL PROTEIN, SERUM 6.4 g/dL (6.4-8.2)
[2022-12-18 17:22] LABS: LACTIC ACID 2.3 mmol/L (0.4-2.0)
[2022-12-18 17:35] LABS: BAND NEUTROPHILS % (MANUAL) 3 % (0-5); LYMPHOCYTES % (MANUAL) 5 % (22-44); MONOCYTES % (MANUAL) 6 % (2-9); SEGMENTED NEUTROPHILS % 86 % (40-70)
[2022-12-18 17:36] LABS: CREATINE KINASE, TOTAL ONLY 382 U/L (39-308)
[2022-12-18 17:47] LABS: ABG BASE EXCESS -2.2 mmol/L (-2.0-3.0); ABG CARBOXYHEMOGLOBIN 0.3 % (0.0-3.0); ABG HCO3 22.6 mmol/L (22.0-26.0); ABG METHEMOGLOBIN 0.3 % (0.0-1.5); ABG OXYGEN CONTENT 17.9 mL/dL (15.0-23.0); ABG OXYGEN SATURATION 99.1 % (95.0-98.0); ABG OXYHEMOGLOBIN 98.5 % (94.0-100.0); ABG PCO2 42 mmHg (35-45); ABG PH 7.362 (7.350-7.450); ABG TOTAL HEMOGLOBIN 12.7 G/dL (12.0-18.0); PO2, ARTERIAL BG 160.1 mmHg (80.0-100.0); SOURCE, BLOOD GAS ARTERIAL; TEMPERATURE, FAHRENHEIT, BG 96.1 FAHREN (96.0-98.6)
[2022-12-18 17:48] LABS: ABG A-A DIFF O2 78.4 mmHg (10-20.0); O2 DEVICE,BLOOD GAS VENTILATOR (ROOM AIR); SITE, BLOOD GAS ARTERIAL LINE; VT, ABG 600 ml
[2022-12-18 17:49] LABS: PEEP,BG 10 cm H2O; SPONTANEOUS VT, BG 601 ml
[2022-12-18 20:40] LABS: HEMATOCRIT 36.3 % (41-53); HEMOGLOBIN 12.3 g/dL (13.5-17.5); MEAN CORPUSCULAR HEMOGLOBIN 29.3 pg (26.0-34.0); MEAN CORPUSCULAR VOLUME 86 fL (80-100); PLATELET COUNT (AUTO) 59 K/uL (150-450); RED BLOOD CELL COUNT(AUTO) 4.21 MIL/uL (4.50-5.90); RED CELL DISTRIBUTION WIDTH 14.1 % (11.5-14.5)
[2022-12-18 20:45] LABS: AMYLASE 81 U/L (25-115); LIPASE 190 U/L (73-393)
[2022-12-18 20:48] LABS: INR 1.3 (0.9-1.1)
[2022-12-18 20:50] LABS: ALBUMIN 2.2 g/dL (3.4-5.0); BILIRUBIN,DIRECT 3.9 mg/dL (0.00-0.20); BILIRUBIN,TOTAL 5.1 mg/dL (0.1-1.0); CREATININE 7.01 mg/dL (0.60-1.30); PHOSPHORUS 5.6 mg/dL (2.5-4.9); POTASSIUM 4.2 mmol/L (3.5-5.1); TOTAL PROTEIN, SERUM 6.1 g/dL (6.4-8.2)
[2022-12-18 21:01] LABS: LACTIC ACID 2.1 mmol/L (0.4-2.0)
[2022-12-18 21:08] LABS: MAGNESIUM 2.1 mg/dL (1.80-2.40)
[2022-12-18 21:13] LABS: ABG BASE EXCESS -2.1 mmol/L (-2.0-3.0); ABG CARBOXYHEMOGLOBIN 0.2 % (0.0-3.0); ABG HCO3 22.8 mmol/L (22.0-26.0); ABG METHEMOGLOBIN 0.3 % (0.0-1.5); ABG OXYGEN CONTENT 18.1 mL/dL (15.0-23.0); ABG OXYGEN SATURATION 98.4 % (95.0-98.0); ABG OXYHEMOGLOBIN 97.9 % (94.0-100.0); ABG PCO2 42 mmHg (35-45); ABG PH 7.365 (7.350-7.450); PO2, ARTERIAL BG 129.6 mmHg (80.0-100.0); SOURCE, BLOOD GAS ARTERIAL; TEMPERATURE, FAHRENHEIT, BG 98.6 FAHREN (96.0-98.6)
[2022-12-18 21:15] LABS: O2 DEVICE,BLOOD GAS VENT (ROOM AIR); SITE, BLOOD GAS A-LINE
[2022-12-18 21:16] LABS: PEEP,BG 10 cm H2O; VT, ABG 600 ml
[2022-12-18 21:56] LABS: BAND NEUTROPHILS % (MANUAL) 5 % (0-5); LYMPHOCYTES % (MANUAL) 7 % (22-44); MONOCYTES % (MANUAL) 10 % (2-9); SEGMENTED NEUTROPHILS % 78 % (40-70)
[2022-12-18] MEDS: HydrALAZINE HCL 20 MG/ML VIAL IVP PRN (23:30)
[2022-12-19] VITALS (15 sets, daily range): BP systolic 143–154; BP diastolic 75–88; PULSE 86–105; RESP 15–16; TEMP 95.9–97.4; O2SAT 99–100
[2022-12-19 01:02] LABS: HEMATOCRIT 36.8 % (41-53); HEMOGLOBIN 12.5 g/dL (13.5-17.5); MEAN CORPUSCULAR HEMOGLOBIN 29.2 pg (26.0-34.0); MEAN CORPUSCULAR HGB CONC 33.8 G/dL (31.0-37.0); MEAN CORPUSCULAR VOLUME 86 fL (80-100); PLATELET COUNT (AUTO) 63 K/uL (150-450); RED BLOOD CELL COUNT(AUTO) 4.26 MIL/uL (4.50-5.90); RED CELL DISTRIBUTION WIDTH 13.9 % (11.5-14.5)
[2022-12-19 01:19] LABS: INR 1.3 (0.9-1.1); PROTHROMBIN TIME 12.9 SEC (9.4-11.6)
[2022-12-19 01:23] LABS: LACTIC ACID 1.7 mmol/L (0.4-2.0)
[2022-12-19 01:37] LABS: ALBUMIN 2.2 g/dL (3.4-5.0); BILIRUBIN,DIRECT 3.9 mg/dL (0.00-0.20); BILIRUBIN,TOTAL 4.9 mg/dL (0.1-1.0); CALCIUM, TOTAL 7.9 mg/dL (8.8-10.5); CREATININE 7.62 mg/dL (0.60-1.30); MAGNESIUM 2.2 mg/dL (1.80-2.40); PHOSPHORUS 5.2 mg/dL (2.5-4.9); POTASSIUM 4.3 mmol/L (3.5-5.1)
[2022-12-19 01:46] LABS: BAND NEUTROPHILS % (MANUAL) 7 % (0-5); LYMPHOCYTES % (MANUAL) 7 % (22-44); MONOCYTES % (MANUAL) 7 % (2-9); SEGMENTED NEUTROPHILS % 79 % (40-70)
[2022-12-19 02:19] LABS: ABG BASE EXCESS -2.9 mmol/L (-2.0-3.0); ABG CARBOXYHEMOGLOBIN 0.3 % (0.0-3.0); ABG HCO3 22.2 mmol/L (22.0-26.0); ABG METHEMOGLOBIN 0.3 % (0.0-1.5); ABG OXYGEN SATURATION 98.7 % (95.0-98.0); ABG OXYHEMOGLOBIN 98.1 % (94.0-100.0); ABG PCO2 42 mmHg (35-45); ABG PH 7.351 (7.350-7.450); ABG TOTAL HEMOGLOBIN 12.9 G/dL (12.0-18.0); SOURCE, BLOOD GAS ARTERIAL; TEMPERATURE, FAHRENHEIT, BG 98.6 FAHREN (96.0-98.6)
[2022-12-19 02:22] LABS: SITE, BLOOD GAS A-LINE
[2022-12-19 02:23] LABS: O2 DEVICE,BLOOD GAS VENT (ROOM AIR); VT, ABG 600 ml
[2022-12-19 04:26] LABS: HEMOGLOBIN 12.2 g/dL (13.5-17.5); MEAN CORPUSCULAR HEMOGLOBIN 29.4 pg (26.0-34.0); MEAN CORPUSCULAR HGB CONC 33.9 G/dL (31.0-37.0); MEAN CORPUSCULAR VOLUME 87 fL (80-100); PLATELET COUNT (AUTO) 62 K/uL (150-450); RED BLOOD CELL COUNT(AUTO) 4.16 MIL/uL (4.50-5.90); RED CELL DISTRIBUTION WIDTH 13.9 % (11.5-14.5)
[2022-12-19 04:42] LABS: INR 1.3 (0.9-1.1); PROTHROMBIN TIME 12.9 SEC (9.4-11.6)
[2022-12-19 05:01] LABS: ALBUMIN 2.2 g/dL (3.4-5.0); BILIRUBIN,DIRECT 3.7 mg/dL (0.00-0.20); BILIRUBIN,TOTAL 4.7 mg/dL (0.1-1.0); CALCIUM, TOTAL 7.9 mg/dL (8.8-10.5); CREATININE 7.81 mg/dL (0.60-1.30); MAGNESIUM 2.4 mg/dL (1.80-2.40); PHOSPHORUS 5.6 mg/dL (2.5-4.9); POTASSIUM 4.6 mmol/L (3.5-5.1); TOTAL PROTEIN, SERUM 6.1 g/dL (6.4-8.2)
[2022-12-19 05:16] LABS: BAND NEUTROPHILS % (MANUAL) 8 % (0-5); LYMPHOCYTES % (MANUAL) 9 % (22-44); MONOCYTES % (MANUAL) 6 % (2-9); SEGMENTED NEUTROPHILS % 77 % (40-70)
[2022-12-19] MEDS ORDERED: SODIUM CHLORIDE 0.9% 500 ML IV ONE (06:21)
[2022-12-19] MEDS: MethylPREDNISolone SOD SUCC 500 MG in SODIUM CHLORIDE 0.9% 50 ML IV SCH ×2 (06:24→17:27)
[2022-12-19] MEDS: PIPERACILLIN SODIUM/TAZOBACTAM 2.25 GM in DEXTROSE 5%-WATER 50 ML IV SCH ×3 (06:24→21:26)
[2022-12-19 07:47] LABS: ABG BASE EXCESS -3.2 mmol/L (-2.0-3.0); ABG METHEMOGLOBIN 0.3 % (0.0-1.5); ABG OXYGEN SATURATION 98.7 % (95.0-98.0); ABG OXYHEMOGLOBIN 98.4 % (94.0-100.0); ABG PCO2 39 mmHg (35-45); ABG PH 7.375 (7.350-7.450); ABG TOTAL HEMOGLOBIN 12.8 G/dL (12.0-18.0); PO2, ARTERIAL BG 133.2 mmHg (80.0-100.0); SOURCE, BLOOD GAS ARTERIAL; TEMPERATURE, FAHRENHEIT, BG 95.9 FAHREN (96.0-98.6)
[2022-12-19 07:49] LABS: ABG A-A DIFF O2 109.2 mmHg (10-20.0); O2 DEVICE,BLOOD GAS VENTILATOR (ROOM AIR); PEEP,BG 10 cm H2O; SITE, BLOOD GAS ARTERIAL LINE; VT, ABG 600 ml
[2022-12-19 08:57] LABS: BASOPHILS % (AUTO) 0.3 % (0.0-2.0); EOSINOPHILS % (AUTO) 0 % (1.0-6.0); HEMATOCRIT 35.4 % (41-53); LYMPHOCYTES # (AUTO) 0.4 K/uL (1.0-4.8); LYMPHOCYTES % (AUTO) 7.6 % (22.0-44.0); MEAN CORPUSCULAR HEMOGLOBIN 29.4 pg (26.0-34.0); MEAN CORPUSCULAR VOLUME 86 fL (80-100); MONOCYTES # (AUTO) 0.5 K/uL (0.1-1.0); MONOCYTES % (AUTO) 10.3 % (2.0-9.0); NEUTROPHILS # (AUTO) 4.2 K/uL (1.8-7.7); NEUTROPHILS % (AUTO) 81.8 % (40.0-70.0); PLATELET COUNT (AUTO) 65 K/uL (150-450); RED BLOOD CELL COUNT(AUTO) 4.09 MIL/uL (4.50-5.90); RED CELL DISTRIBUTION WIDTH 14.3 % (11.5-14.5)
[2022-12-19] MEDS: DOCUSATE SODIUM 100 MG CAPSULE PO SCH ×2 (09:00→21:00)
[2022-12-19 09:05] LABS: INR 1.2 (0.9-1.1); PROTHROMBIN TIME 12.5 SEC (9.4-11.6)
[2022-12-19 09:09] LABS: ALBUMIN 2.1 g/dL (3.4-5.0); BILIRUBIN,DIRECT 3.6 mg/dL (0.00-0.20); BILIRUBIN,TOTAL 4.4 mg/dL (0.1-1.0); CREATININE 8.44 mg/dL (0.60-1.30); POTASSIUM 4.6 mmol/L (3.5-5.1); TOTAL PROTEIN, SERUM 6.1 g/dL (6.4-8.2)
[2022-12-19 09:13] LABS: LACTIC ACID 1.5 mmol/L (0.4-2.0)
[2022-12-19 09:39] LABS: MAGNESIUM 2.5 mg/dL (1.80-2.40)
[2022-12-19 12:33] LABS: BASOPHILS % (AUTO) 0.3 % (0.0-2.0); EOSINOPHILS % (AUTO) 0.2 % (1.0-6.0); HEMATOCRIT 35.5 % (41-53); HEMOGLOBIN 11.8 g/dL (13.5-17.5); INR 1.2 (0.9-1.1); LYMPHOCYTES # (AUTO) 0.4 K/uL (1.0-4.8); LYMPHOCYTES % (AUTO) 7.5 % (22.0-44.0); MEAN CORPUSCULAR HEMOGLOBIN 28.7 pg (26.0-34.0); MEAN CORPUSCULAR HGB CONC 33.2 G/dL (31.0-37.0); MEAN CORPUSCULAR VOLUME 86 fL (80-100); MONOCYTES # (AUTO) 0.5 K/uL (0.1-1.0); MONOCYTES % (AUTO) 9.8 % (2.0-9.0); NEUTROPHILS # (AUTO) 4.2 K/uL (1.8-7.7); NEUTROPHILS % (AUTO) 82.2 % (40.0-70.0); PLATELET COUNT (AUTO) 72 K/uL (150-450); PROTHROMBIN TIME 12.4 SEC (9.4-11.6); RED BLOOD CELL COUNT(AUTO) 4.11 MIL/uL (4.50-5.90); RED CELL DISTRIBUTION WIDTH 14.2 % (11.5-14.5)
[2022-12-19 12:37] LABS: ABG BASE EXCESS -3.1 mmol/L (-2.0-3.0); ABG CARBOXYHEMOGLOBIN 0.3 % (0.0-3.0); ABG HCO3 22.1 mmol/L (22.0-26.0); ABG METHEMOGLOBIN 0.3 % (0.0-1.5); ABG OXYGEN CONTENT 17.8 mL/dL (15.0-23.0); ABG OXYGEN SATURATION 98.7 % (95.0-98.0); ABG OXYHEMOGLOBIN 98.1 % (94.0-100.0); ABG PCO2 39 mmHg (35-45); ABG TOTAL HEMOGLOBIN 12.7 G/dL (12.0-18.0); O2 DEVICE,BLOOD GAS VENTILATOR (ROOM AIR); PEEP,BG 10 cm H2O; PO2, ARTERIAL BG 137.2 mmHg (80.0-100.0); SITE, BLOOD GAS ARTERIAL LINE; SOURCE, BLOOD GAS ARTERIAL; TEMPERATURE, FAHRENHEIT, BG 96.7 FAHREN (96.0-98.6); VT, ABG 600 ml
[2022-12-19 12:57] LABS: ALBUMIN 2.1 g/dL (3.4-5.0); BILIRUBIN,DIRECT 3.5 mg/dL (0.00-0.20); BILIRUBIN,TOTAL 4.3 mg/dL (0.1-1.0); CALCIUM, TOTAL 7.9 mg/dL (8.8-10.5); CREATININE 8.62 mg/dL (0.60-1.30); MAGNESIUM 2.6 mg/dL (1.80-2.40); PHOSPHORUS 6.2 mg/dL (2.5-4.9); POTASSIUM 4.6 mmol/L (3.5-5.1); TOTAL PROTEIN, SERUM 6.2 g/dL (6.4-8.2)
[2022-12-19] MEDS: HydrALAZINE HCL 20 MG/ML VIAL IVP PRN (13:28)
[2022-12-19 13:36] LABS: ABG CARBOXYHEMOGLOBIN 0.1 % (0.0-3.0); ABG HCO3 21.5 mmol/L (22.0-26.0); ABG METHEMOGLOBIN 0.3 % (0.0-1.5); ABG OXYGEN CONTENT 17.5 mL/dL (15.0-23.0); ABG OXYGEN SATURATION 98.5 % (95.0-98.0); ABG OXYHEMOGLOBIN 98.1 % (94.0-100.0); ABG PCO2 38 mmHg (35-45); ABG PH 7.371 (7.350-7.450); ABG TOTAL HEMOGLOBIN 12.5 G/dL (12.0-18.0); PO2, ARTERIAL BG 127.8 mmHg (80.0-100.0); SOURCE, BLOOD GAS ARTERIAL; TEMPERATURE, FAHRENHEIT, BG 96.8 FAHREN (96.0-98.6)
[2022-12-19 13:37] LABS: ABG A-A DIFF O2 115.3 mmHg (10-20.0); O2 DEVICE,BLOOD GAS VENTILATOR (ROOM AIR); PEEP,BG 5 cm H2O; SITE, BLOOD GAS ARTERIAL LINE; VT, ABG 600 ml
[2022-12-19 14:13] LABS: ABG BASE EXCESS -4.7 mmol/L (-2.0-3.0); ABG HCO3 21.1 mmol/L (22.0-26.0); ABG METHEMOGLOBIN 0.3 % (0.0-1.5); ABG OXYGEN CONTENT 18.8 mL/dL (15.0-23.0); ABG OXYGEN SATURATION 99.7 % (95.0-98.0); ABG OXYHEMOGLOBIN 99.4 % (94.0-100.0); ABG PCO2 36 mmHg (35-45); ABG PH 7.375 (7.350-7.450); ABG TOTAL HEMOGLOBIN 12.6 G/dL (12.0-18.0); PO2, ARTERIAL BG 449.6 mmHg (80.0-100.0); SOURCE, BLOOD GAS ARTERIAL
[2022-12-19 14:14] LABS: ABG A-A DIFF O2 229.7 mmHg (10-20.0); O2 DEVICE,BLOOD GAS VENTILATOR (ROOM AIR); PEEP,BG 5 cm H2O; SITE, BLOOD GAS ARTERIAL LINE; VT, ABG 600 ml
[2022-12-19 16:45] LABS: HEMATOCRIT 35.6 % (41-53); HEMOGLOBIN 12.1 g/dL (13.5-17.5); MEAN CORPUSCULAR HEMOGLOBIN 29.2 pg (26.0-34.0); MEAN CORPUSCULAR HGB CONC 33.9 G/dL (31.0-37.0); MEAN CORPUSCULAR VOLUME 86 fL (80-100); PLATELET COUNT (AUTO) 74 K/uL (150-450); RED BLOOD CELL COUNT(AUTO) 4.14 MIL/uL (4.50-5.90); RED CELL DISTRIBUTION WIDTH 14.1 % (11.5-14.5)
[2022-12-19 17:04] LABS: INR 1.2 (0.9-1.1); PROTHROMBIN TIME 12.5 SEC (9.4-11.6)
[2022-12-19 17:06] LABS: BILIRUBIN,DIRECT 3.3 mg/dL (0.00-0.20); BILIRUBIN,TOTAL 4.1 mg/dL (0.1-1.0)
[2022-12-19 17:24] LABS: ALBUMIN 2.1 g/dL (3.4-5.0); BILIRUBIN,TOTAL 4.1 mg/dL (0.1-1.0); CALCIUM, TOTAL 7.8 mg/dL (8.8-10.5); CREATININE 9.38 mg/dL (0.60-1.30); MAGNESIUM 2.7 mg/dL (1.80-2.40); PHOSPHORUS 6.5 mg/dL (2.5-4.9); POTASSIUM 4.7 mmol/L (3.5-5.1); TOTAL PROTEIN, SERUM 6.3 g/dL (6.4-8.2)
[2022-12-19 17:41] LABS: BAND NEUTROPHILS % (MANUAL) 5 % (0-5); LYMPHOCYTES % (MANUAL) 4 % (22-44); MONOCYTES % (MANUAL) 8 % (2-9); REACTIVE LYMPHOCYTES 4 % (0-0); SEGMENTED NEUTROPHILS % 79 % (40-70)
[2022-12-19 19:49] LABS: ABG BASE EXCESS -5.5 mmol/L (-2.0-3.0); ABG CARBOXYHEMOGLOBIN 0.3 % (0.0-3.0); ABG HCO3 20.4 mmol/L (22.0-26.0); ABG METHEMOGLOBIN 0.3 % (0.0-1.5); ABG OXYGEN CONTENT 17.6 mL/dL (15.0-23.0); ABG OXYGEN SATURATION 98.7 % (95.0-98.0); ABG OXYHEMOGLOBIN 98.1 % (94.0-100.0); ABG PCO2 37 mmHg (35-45); ABG PH 7.352 (7.350-7.450); ABG TOTAL HEMOGLOBIN 12.6 G/dL (12.0-18.0); PO2, ARTERIAL BG 139.6 mmHg (80.0-100.0); SOURCE, BLOOD GAS ARTERIAL
[2022-12-19 19:50] LABS: O2 DEVICE,BLOOD GAS VENTILATOR (ROOM AIR); SITE, BLOOD GAS ARTERIAL LINE
[2022-12-19 19:51] LABS: PEEP,BG 10 cm H2O; VT, ABG 600 ml
[2022-12-19 20:19] LABS: HEMATOCRIT 35.2 % (41-53); HEMOGLOBIN 11.6 g/dL (13.5-17.5); MEAN CORPUSCULAR HEMOGLOBIN 28.4 pg (26.0-34.0); MEAN CORPUSCULAR HGB CONC 33.1 G/dL (31.0-37.0); MEAN CORPUSCULAR VOLUME 86 fL (80-100); PLATELET COUNT (AUTO) 80 K/uL (150-450); RED CELL DISTRIBUTION WIDTH 14.2 % (11.5-14.5)
[2022-12-19 20:30] LABS: ALBUMIN 2.1 g/dL (3.4-5.0); BILIRUBIN,TOTAL 3.7 mg/dL (0.1-1.0); CALCIUM, TOTAL 7.6 mg/dL (8.8-10.5); CREATININE 10.07 mg/dL (0.60-1.30); POTASSIUM 4.6 mmol/L (3.5-5.1); TOTAL PROTEIN, SERUM 6.1 g/dL (6.4-8.2)
[2022-12-19 20:33] LABS: INR 1.2 (0.9-1.1); LACTIC ACID 1.5 mmol/L (0.4-2.0); PROTHROMBIN TIME 12.4 SEC (9.4-11.6)
[2022-12-19 20:49] LABS: MAGNESIUM 2.9 mg/dL (1.80-2.40)
[2022-12-19 20:59] LABS: BAND NEUTROPHILS % (MANUAL) 4 % (0-5); LYMPHOCYTES % (MANUAL) 9 % (22-44); MONOCYTES % (MANUAL) 6 % (2-9); SEGMENTED NEUTROPHILS % 81 % (40-70)
[2022-12-20] VITALS (15 sets, daily range): BP systolic 136–156; BP diastolic 70–83; PULSE 81–100; RESP 16–21; TEMP 94.9–97.6; O2SAT 97–100
[2022-12-20 00:16] LABS: ABG BASE EXCESS -5.3 mmol/L (-2.0-3.0); ABG CARBOXYHEMOGLOBIN 0.3 % (0.0-3.0); ABG HCO3 20.4 mmol/L (22.0-26.0); ABG METHEMOGLOBIN 0.3 % (0.0-1.5); ABG OXYGEN CONTENT 17.8 mL/dL (15.0-23.0); ABG OXYGEN SATURATION 98.6 % (95.0-98.0); ABG PCO2 38 mmHg (35-45); ABG PH 7.345 (7.350-7.450); ABG TOTAL HEMOGLOBIN 12.7 G/dL (12.0-18.0); PO2, ARTERIAL BG 137.3 mmHg (80.0-100.0); SOURCE, BLOOD GAS ARTERIAL; TEMPERATURE, FAHRENHEIT, BG 96.1 FAHREN (96.0-98.6)
[2022-12-20 00:17] LABS: ABG A-A DIFF O2 105.3 mmHg (10-20.0); O2 DEVICE,BLOOD GAS VENT (ROOM AIR); PEEP,BG 10 cm H2O; SITE, BLOOD GAS ARTERIAL LINE; VT, ABG 600 ml
[2022-12-20 00:22] LABS: HEMOGLOBIN 11.8 g/dL (13.5-17.5); MEAN CORPUSCULAR HEMOGLOBIN 29.1 pg (26.0-34.0); MEAN CORPUSCULAR HGB CONC 33.6 G/dL (31.0-37.0); MEAN CORPUSCULAR VOLUME 87 fL (80-100); PLATELET COUNT (AUTO) 81 K/uL (150-450); RED BLOOD CELL COUNT(AUTO) 4.04 MIL/uL (4.50-5.90)
[2022-12-20 00:44] LABS: BAND NEUTROPHILS % (MANUAL) 2 % (0-5); LYMPHOCYTES % (MANUAL) 10 % (22-44); MONOCYTES % (MANUAL) 2 % (2-9); SEGMENTED NEUTROPHILS % 86 % (40-70)
[2022-12-20 00:49] LABS: INR 1.2 (0.9-1.1); PROTHROMBIN TIME 12.4 SEC (9.4-11.6)
[2022-12-20 00:56] LABS: ALBUMIN 2.2 g/dL (3.4-5.0); BILIRUBIN,DIRECT 2.7 mg/dL (0.00-0.20); BILIRUBIN,TOTAL 3.4 mg/dL (0.1-1.0); CALCIUM, TOTAL 7.8 mg/dL (8.8-10.5); CREATININE 10.49 mg/dL (0.60-1.30); MAGNESIUM 3.1 mg/dL (1.80-2.40); PHOSPHORUS 7.8 mg/dL (2.5-4.9); POTASSIUM 4.9 mmol/L (3.5-5.1); TOTAL PROTEIN, SERUM 6.2 g/dL (6.4-8.2)
[2022-12-20 04:04] LABS: BAND NEUTROPHILS % (MANUAL) 0 % (0-5)
[2022-12-20 04:08] LABS: ABG BASE EXCESS -6.9 mmol/L (-2.0-3.0); ABG HCO3 19.3 mmol/L (22.0-26.0); ABG METHEMOGLOBIN 0.3 % (0.0-1.5); ABG OXYGEN CONTENT 17.6 mL/dL (15.0-23.0); ABG OXYGEN SATURATION 98.7 % (95.0-98.0); ABG OXYHEMOGLOBIN 98.4 % (94.0-100.0); ABG PCO2 37 mmHg (35-45); ABG PH 7.329 (7.350-7.450); ABG TOTAL HEMOGLOBIN 12.5 G/dL (12.0-18.0); PO2, ARTERIAL BG 145.7 mmHg (80.0-100.0); SITE, BLOOD GAS ARTERIAL LINE; SOURCE, BLOOD GAS ARTERIAL
[2022-12-20 04:08] LABS: HEMATOCRIT 34.5 % (41-53); HEMOGLOBIN 11.7 g/dL (13.5-17.5); MEAN CORPUSCULAR HEMOGLOBIN 29.3 pg (26.0-34.0); MEAN CORPUSCULAR HGB CONC 33.9 G/dL (31.0-37.0); MEAN CORPUSCULAR VOLUME 86 fL (80-100); PLATELET COUNT (AUTO) 83 K/uL (150-450); RED CELL DISTRIBUTION WIDTH 14.4 % (11.5-14.5)
[2022-12-20 04:09] LABS: O2 DEVICE,BLOOD GAS VENTILATOR (ROOM AIR); PEEP,BG 10 cm H2O; VT, ABG 600 ml
[2022-12-20] MEDS ORDERED: SODIUM CHLORIDE 0.9% 500 ML IV ONE ×3 (04:12→23:17)
[2022-12-20 04:21] LABS: INR 1.2 (0.9-1.1); PROTHROMBIN TIME 12.5 SEC (9.4-11.6)
[2022-12-20 04:40] LABS: ALBUMIN 2.1 g/dL (3.4-5.0); BILIRUBIN,DIRECT 2.5 mg/dL (0.00-0.20); BILIRUBIN,TOTAL 3.1 mg/dL (0.1-1.0); CALCIUM, TOTAL 7.6 mg/dL (8.8-10.5); CREATININE 10.77 mg/dL (0.60-1.30); LYMPHOCYTES % (MANUAL) 13 % (22-44); MAGNESIUM 3.2 mg/dL (1.80-2.40); MONOCYTES % (MANUAL) 4 % (2-9); PHOSPHORUS 8.3 mg/dL (2.5-4.9); SEGMENTED NEUTROPHILS % 83 % (40-70); TOTAL PROTEIN, SERUM 6.3 g/dL (6.4-8.2)
[2022-12-20 05:52] LABS: ABG BASE EXCESS -6.9 mmol/L (-2.0-3.0); ABG CARBOXYHEMOGLOBIN 0.1 % (0.0-3.0); ABG HCO3 19.4 mmol/L (22.0-26.0); ABG OXYGEN CONTENT 17.6 mL/dL (15.0-23.0); ABG OXYGEN SATURATION 98.9 % (95.0-98.0); ABG OXYHEMOGLOBIN 98.8 % (94.0-100.0); ABG PCO2 35 mmHg (35-45); ABG PH 7.347 (7.350-7.450); ABG TOTAL HEMOGLOBIN 12.5 G/dL (12.0-18.0); SITE, BLOOD GAS ARTERIAL LINE; SOURCE, BLOOD GAS ARTERIAL; TEMPERATURE, FAHRENHEIT, BG 96.1 FAHREN (96.0-98.6)
[2022-12-20 05:53] LABS: O2 DEVICE,BLOOD GAS VENTILATOR (ROOM AIR); PEEP,BG 5 cm H2O; VT, ABG 600 ml
[2022-12-20] MEDS: PIPERACILLIN SODIUM/TAZOBACTAM 2.25 GM in DEXTROSE 5%-WATER 50 ML IV SCH ×3 (06:01→22:20)
[2022-12-20] MEDS: MethylPREDNISolone SOD SUCC 500 MG in SODIUM CHLORIDE 0.9% 50 ML IV SCH ×2 (06:02→18:02)
[2022-12-20] MEDS: HydrALAZINE HCL 20 MG/ML VIAL IVP PRN (06:09)
[2022-12-20 06:47] LABS: ABG A-A DIFF O2 196.2 mmHg (10-20.0); ABG BASE EXCESS -6.9 mmol/L (-2.0-3.0); ABG CARBOXYHEMOGLOBIN 0.3 % (0.0-3.0); ABG HCO3 19.4 mmol/L (22.0-26.0); ABG OXYGEN CONTENT 18.8 mL/dL (15.0-23.0); ABG OXYGEN SATURATION 99.7 % (95.0-98.0); ABG OXYHEMOGLOBIN 99.4 % (94.0-100.0); ABG PCO2 35 mmHg (35-45); ABG PH 7.345 (7.350-7.450); ABG TOTAL HEMOGLOBIN 12.5 G/dL (12.0-18.0); O2 DEVICE,BLOOD GAS VENTILATOR (ROOM AIR); PEEP,BG 5 cm H2O; PO2, ARTERIAL BG 485.6 mmHg (80.0-100.0); SITE, BLOOD GAS ARTERIAL LINE; SOURCE, BLOOD GAS ARTERIAL; TEMPERATURE, FAHRENHEIT, BG 95.7 FAHREN (96.0-98.6); VT, ABG 600 ml
[2022-12-20] MEDS: DOCUSATE SODIUM 100 MG CAPSULE PO SCH ×2 (07:33→21:00)
[2022-12-20 08:11] LABS: HEMATOCRIT 35.5 % (41-53); HEMOGLOBIN 12.1 g/dL (13.5-17.5); MEAN CORPUSCULAR HEMOGLOBIN 29.3 pg (26.0-34.0); MEAN CORPUSCULAR HGB CONC 34.1 G/dL (31.0-37.0); MEAN CORPUSCULAR VOLUME 86 fL (80-100); PLATELET COUNT (AUTO) 77 K/uL (150-450); RED BLOOD CELL COUNT(AUTO) 4.13 MIL/uL (4.50-5.90)
[2022-12-20 08:22] LABS: INR 1.2 (0.9-1.1); PROTHROMBIN TIME 12.4 SEC (9.4-11.6)
[2022-12-20 08:32] LABS: LACTIC ACID 1.3 mmol/L (0.4-2.0)
[2022-12-20 08:37] LABS: ALBUMIN 2.2 g/dL (3.4-5.0); BILIRUBIN,DIRECT 2.3 mg/dL (0.00-0.20); BILIRUBIN,TOTAL 2.9 mg/dL (0.1-1.0); CALCIUM, TOTAL 7.7 mg/dL (8.8-10.5); CREATININE 11.2 mg/dL (0.60-1.30); PHOSPHORUS 8.3 mg/dL (2.5-4.9); POTASSIUM 4.9 mmol/L (3.5-5.1); TOTAL PROTEIN, SERUM 6.5 g/dL (6.4-8.2)
[2022-12-20 08:52] LABS: BAND NEUTROPHILS % (MANUAL) 1 % (0-5); LYMPHOCYTES % (MANUAL) 14 % (22-44); MONOCYTES % (MANUAL) 5 % (2-9); SEGMENTED NEUTROPHILS % 80 % (40-70)
[2022-12-20 08:55] LABS: MAGNESIUM 3.3 mg/dL (1.80-2.40)
[2022-12-20 09:08] LABS: ABG A-A DIFF O2 119.1 mmHg (10-20.0); ABG BASE EXCESS -7.1 mmol/L (-2.0-3.0); ABG CARBOXYHEMOGLOBIN 0.3 % (0.0-3.0); ABG HCO3 19.1 mmol/L (22.0-26.0); ABG OXYGEN CONTENT 17.8 mL/dL (15.0-23.0); ABG OXYGEN SATURATION 98.6 % (95.0-98.0); ABG OXYHEMOGLOBIN 98.3 % (94.0-100.0); ABG PCO2 36 mmHg (35-45); ABG PH 7.338 (7.350-7.450); ABG TOTAL HEMOGLOBIN 12.7 G/dL (12.0-18.0); O2 DEVICE,BLOOD GAS VENTILATOR (ROOM AIR); PEEP,BG 10 cm H2O; SITE, BLOOD GAS ARTERIAL LINE; SOURCE, BLOOD GAS ARTERIAL; TEMPERATURE, FAHRENHEIT, BG 95.1 FAHREN (96.0-98.6); VT, ABG 600 ml
[2022-12-20 11:05] LABS: ABG A-A DIFF O2 133.8 mmHg (10-20.0); ABG BASE EXCESS -8.5 mmol/L (-2.0-3.0); ABG CARBOXYHEMOGLOBIN 0.1 % (0.0-3.0); ABG HCO3 18.3 mmol/L (22.0-26.0); ABG METHEMOGLOBIN 0.3 % (0.0-1.5); ABG OXYGEN CONTENT 17.3 mL/dL (15.0-23.0); ABG OXYGEN SATURATION 98.3 % (95.0-98.0); ABG OXYHEMOGLOBIN 97.9 % (94.0-100.0); ABG PCO2 32 mmHg (35-45); ABG PH 7.344 (7.350-7.450); ABG TOTAL HEMOGLOBIN 12.4 G/dL (12.0-18.0); O2 DEVICE,BLOOD GAS VENTILATOR (ROOM AIR); PEEP,BG 5 cm H2O; PO2, ARTERIAL BG 116.1 mmHg (80.0-100.0); SITE, BLOOD GAS ARTERIAL LINE; SOURCE, BLOOD GAS ARTERIAL; VT, ABG 600 ml
[2022-12-20] MEDS ORDERED: HEPARIN SODIUM,PORCINE 1,000 UNITS/ML VIAL IVP ONE (12:00)
[2022-12-20 12:13] LABS: HEMATOCRIT 34.3 % (41-53); HEMOGLOBIN 11.5 g/dL (13.5-17.5); MEAN CORPUSCULAR HEMOGLOBIN 28.9 pg (26.0-34.0); MEAN CORPUSCULAR HGB CONC 33.6 G/dL (31.0-37.0); MEAN CORPUSCULAR VOLUME 86 fL (80-100); PLATELET COUNT (AUTO) 83 K/uL (150-450); RED BLOOD CELL COUNT(AUTO) 3.99 MIL/uL (4.50-5.90); RED CELL DISTRIBUTION WIDTH 14.1 % (11.5-14.5)
[2022-12-20 12:28] LABS: INR 1.2 (0.9-1.1); PROTHROMBIN TIME 12.6 SEC (9.4-11.6)
[2022-12-20 12:35] LABS: ALBUMIN 2.1 g/dL (3.4-5.0); BILIRUBIN,TOTAL 2.5 mg/dL (0.1-1.0); CALCIUM, TOTAL 7.5 mg/dL (8.8-10.5); CREATININE 11.32 mg/dL (0.60-1.30); PHOSPHORUS 8.8 mg/dL (2.5-4.9); TOTAL PROTEIN, SERUM 6.2 g/dL (6.4-8.2)
[2022-12-20 12:36] LABS: BAND NEUTROPHILS % (MANUAL) 2 % (0-5); LYMPHOCYTES % (MANUAL) 14 % (22-44); MONOCYTES % (MANUAL) 4 % (2-9); SEGMENTED NEUTROPHILS % 80 % (40-70)
[2022-12-20 12:42] LABS: LACTIC ACID 1.3 mmol/L (0.4-2.0)
[2022-12-20 12:44] LABS: ABG A-A DIFF O2 190.6 mmHg (10-20.0); ABG BASE EXCESS -7.9 mmol/L (-2.0-3.0); ABG HCO3 18.7 mmol/L (22.0-26.0); ABG METHEMOGLOBIN 0.3 % (0.0-1.5); ABG OXYGEN CONTENT 18.6 mL/dL (15.0-23.0); ABG OXYGEN SATURATION 99.7 % (95.0-98.0); ABG OXYHEMOGLOBIN 99.4 % (94.0-100.0); ABG PCO2 33 mmHg (35-45); ABG PH 7.345 (7.350-7.450); ABG TOTAL HEMOGLOBIN 12.3 G/dL (12.0-18.0); O2 DEVICE,BLOOD GAS VENTILATOR (ROOM AIR); PEEP,BG 5 cm H2O; PO2, ARTERIAL BG 493.9 mmHg (80.0-100.0); SITE, BLOOD GAS ARTERIAL LINE; SOURCE, BLOOD GAS ARTERIAL; VT, ABG 600 ml
[2022-12-20 13:01] LABS: MAGNESIUM 3.4 mg/dL (1.80-2.40)
[2022-12-20 16:10] LABS: ABG BASE EXCESS -10.3 mmol/L (-2.0-3.0); ABG CARBOXYHEMOGLOBIN 0.1 % (0.0-3.0); ABG HCO3 17.1 mmol/L (22.0-26.0); ABG METHEMOGLOBIN 0.3 % (0.0-1.5); ABG OXYGEN CONTENT 17.3 mL/dL (15.0-23.0); ABG OXYGEN SATURATION 98.7 % (95.0-98.0); ABG OXYHEMOGLOBIN 98.3 % (94.0-100.0); ABG PCO2 30 mmHg (35-45); ABG PH 7.332 (7.350-7.450); ABG TOTAL HEMOGLOBIN 12.3 G/dL (12.0-18.0); PO2, ARTERIAL BG 143.3 mmHg (80.0-100.0); SOURCE, BLOOD GAS ARTERIAL; TEMPERATURE, FAHRENHEIT, BG 94.8 FAHREN (96.0-98.6)
[2022-12-20 16:11] LABS: ABG A-A DIFF O2 109.1 mmHg (10-20.0); O2 DEVICE,BLOOD GAS VENTILATOR (ROOM AIR); PEEP,BG 5 cm H2O; SITE, BLOOD GAS ARTERIAL LINE; VT, ABG 600 ml
[2022-12-20 16:21] LABS: HEMATOCRIT 34.6 % (41-53); HEMOGLOBIN 11.3 g/dL (13.5-17.5); MEAN CORPUSCULAR HEMOGLOBIN 28.2 pg (26.0-34.0); MEAN CORPUSCULAR HGB CONC 32.8 G/dL (31.0-37.0); MEAN CORPUSCULAR VOLUME 86 fL (80-100); PLATELET COUNT (AUTO) 88 K/uL (150-450); RED BLOOD CELL COUNT(AUTO) 4.02 MIL/uL (4.50-5.90); RED CELL DISTRIBUTION WIDTH 14.2 % (11.5-14.5)
[2022-12-20 16:33] LABS: BILIRUBIN,DIRECT 1.7 mg/dL (0.00-0.20); BILIRUBIN,TOTAL 2.3 mg/dL (0.1-1.0)
[2022-12-20 16:37] LABS: INR 1.2 (0.9-1.1); PROTHROMBIN TIME 12.5 SEC (9.4-11.6)
[2022-12-20 16:49] LABS: ALBUMIN 2.1 g/dL (3.4-5.0); BILIRUBIN,TOTAL 2.2 mg/dL (0.1-1.0); CALCIUM, TOTAL 7.4 mg/dL (8.8-10.5); CREATININE 12.01 mg/dL (0.60-1.30); MAGNESIUM 3.5 mg/dL (1.80-2.40); POTASSIUM 4.9 mmol/L (3.5-5.1); TOTAL PROTEIN, SERUM 6.2 g/dL (6.4-8.2)
[2022-12-20 17:04] LABS: ABG A-A DIFF O2 191.8 mmHg (10-20.0); ABG CARBOXYHEMOGLOBIN 0.3 % (0.0-3.0); ABG HCO3 17.9 mmol/L (22.0-26.0); ABG OXYGEN CONTENT 18.6 mL/dL (15.0-23.0); ABG OXYGEN SATURATION 99.7 % (95.0-98.0); ABG OXYHEMOGLOBIN 99.4 % (94.0-100.0); ABG PCO2 32 mmHg (35-45); ABG PH 7.337 (7.350-7.450); ABG TOTAL HEMOGLOBIN 12.3 G/dL (12.0-18.0); O2 DEVICE,BLOOD GAS VENTILATOR (ROOM AIR); PEEP,BG 5 cm H2O; PO2, ARTERIAL BG 494.4 mmHg (80.0-100.0); SITE, BLOOD GAS ARTERIAL LINE; SOURCE, BLOOD GAS ARTERIAL; TEMPERATURE, FAHRENHEIT, BG 94.7 FAHREN (96.0-98.6); VT, ABG 600 ml
[2022-12-20 17:14] LABS: PHOSPHORUS 13.9 mg/dL (2.5-4.9)
[2022-12-20 18:23] LABS: BAND NEUTROPHILS % (MANUAL) 1 % (0-5); EOSINOPHILS % (MANUAL) 3 % (1-6); LYMPHOCYTES % (MANUAL) 19 % (22-44); MONOCYTES % (MANUAL) 4 % (2-9); SEGMENTED NEUTROPHILS % 73 % (40-70); WBC MORPHOLOGY TOXIC GRANULATION
[2022-12-20 20:15] LABS: ABG BASE EXCESS -8.5 mmol/L (-2.0-3.0); ABG CARBOXYHEMOGLOBIN 0.3 % (0.0-3.0); ABG HCO3 18.1 mmol/L (22.0-26.0); ABG METHEMOGLOBIN 0.3 % (0.0-1.5); ABG OXYGEN CONTENT 17.4 mL/dL (15.0-23.0); ABG OXYGEN SATURATION 98.2 % (95.0-98.0); ABG OXYHEMOGLOBIN 97.6 % (94.0-100.0); ABG PCO2 35 mmHg (35-45); ABG PH 7.321 (7.350-7.450); ABG TOTAL HEMOGLOBIN 12.5 G/dL (12.0-18.0); SOURCE, BLOOD GAS ARTERIAL; TEMPERATURE, FAHRENHEIT, BG 94.9 FAHREN (96.0-98.6)
[2022-12-20 20:16] LABS: ABG A-A DIFF O2 126.2 mmHg (10-20.0); O2 DEVICE,BLOOD GAS VENT (ROOM AIR); PEEP,BG 5 cm H2O; SITE, BLOOD GAS ARTERIAL LINE; VT, ABG 600 ml
[2022-12-20 20:28] LABS: HEMATOCRIT 34.4 % (41-53); HEMOGLOBIN 11.7 g/dL (13.5-17.5); MEAN CORPUSCULAR HEMOGLOBIN 29.2 pg (26.0-34.0); MEAN CORPUSCULAR VOLUME 86 fL (80-100); PLATELET COUNT (AUTO) 89 K/uL (150-450); RED CELL DISTRIBUTION WIDTH 14.3 % (11.5-14.5)
[2022-12-20 20:43] LABS: ABG A-A DIFF O2 218.4 mmHg (10-20.0); ABG BASE EXCESS -9.5 mmol/L (-2.0-3.0); ABG CARBOXYHEMOGLOBIN 0.1 % (0.0-3.0); ABG HCO3 17.6 mmol/L (22.0-26.0); ABG OXYGEN CONTENT 18.8 mL/dL (15.0-23.0); ABG OXYGEN SATURATION 99.7 % (95.0-98.0); ABG OXYHEMOGLOBIN 99.6 % (94.0-100.0); ABG PCO2 33 mmHg (35-45); ABG PH 7.324 (7.350-7.450); ABG TOTAL HEMOGLOBIN 12.5 G/dL (12.0-18.0); O2 DEVICE,BLOOD GAS VENT (ROOM AIR); PO2, ARTERIAL BG 466.9 mmHg (80.0-100.0); SITE, BLOOD GAS ARTERIAL LINE; SOURCE, BLOOD GAS ARTERIAL; VT, ABG 600 ml
[2022-12-20 20:44] LABS: BILIRUBIN,DIRECT 1.6 mg/dL (0.00-0.20); BILIRUBIN,TOTAL 2.1 mg/dL (0.1-1.0); INR 1.2 (0.9-1.1); PROTHROMBIN TIME 12.7 SEC (9.4-11.6)
[2022-12-20 20:44] LABS: PEEP,BG 5 cm H2O
[2022-12-20 20:55] LABS: BAND NEUTROPHILS % (MANUAL) 4 % (0-5); EOSINOPHILS % (MANUAL) 2 % (1-6); LYMPHOCYTES % (MANUAL) 13 % (22-44); MONOCYTES % (MANUAL) 3 % (2-9); SEGMENTED NEUTROPHILS % 78 % (40-70)
[2022-12-20 20:56] LABS: WBC MORPHOLOGY TOXIC GRANULATION
[2022-12-20 21:03] LABS: BILIRUBIN,TOTAL 2.1 mg/dL (0.1-1.0); CALCIUM, TOTAL 7.3 mg/dL (8.8-10.5); CREATININE 12.39 mg/dL (0.60-1.30); MAGNESIUM 3.7 mg/dL (1.80-2.40); POTASSIUM 4.9 mmol/L (3.5-5.1); TOTAL PROTEIN, SERUM 6.2 g/dL (6.4-8.2)
[2022-12-20 21:19] LABS: PHOSPHORUS 9.8 mg/dL (2.5-4.9)
[2022-12-20] MEDS ORDERED: SODIUM CHLORIDE 0.9% 2,000 ML ONE (23:17)
[2022-12-21] VITALS (19 sets, daily range): BP systolic 102–149; BP diastolic 63–82; PULSE 81–119; RESP 16–20; TEMP 95–98.5; O2SAT 95–100
[2022-12-21 00:24] LABS: SOURCE, BLOOD GAS ARTERIAL; TEMPERATURE, FAHRENHEIT, BG 95.1 FAHREN (96.0-98.6)
[2022-12-21 00:47] LABS: ABG BASE EXCESS -2.8 mmol/L (-2.0-3.0); ABG CARBOXYHEMOGLOBIN 0.2 % (0.0-3.0); ABG HCO3 22.4 mmol/L (22.0-26.0); ABG METHEMOGLOBIN 0.3 % (0.0-1.5); ABG OXYGEN SATURATION 98.1 % (95.0-98.0); ABG OXYHEMOGLOBIN 97.6 % (94.0-100.0); ABG PCO2 36 mmHg (35-45); ABG PH 7.401 (7.350-7.450); PO2, ARTERIAL BG 104.9 mmHg (80.0-100.0)
[2022-12-21 00:48] LABS: ABG A-A DIFF O2 140.5 mmHg (10-20.0); O2 DEVICE,BLOOD GAS VENT (ROOM AIR); PEEP,BG 5 cm H2O; SITE, BLOOD GAS ARTERIAL LINE; VT, ABG 600 ml
[2022-12-21 01:09] LABS: BASOPHILS % (AUTO) 0.5 % (0.0-2.0); EOSINOPHILS % (AUTO) 0 % (1.0-6.0); HEMATOCRIT 36.3 % (41-53); HEMOGLOBIN 12.3 g/dL (13.5-17.5); LYMPHOCYTES # (AUTO) 0.3 K/uL (1.0-4.8); LYMPHOCYTES % (AUTO) 6.6 % (22.0-44.0); MEAN CORPUSCULAR HGB CONC 33.9 G/dL (31.0-37.0); MEAN CORPUSCULAR VOLUME 86 fL (80-100); MONOCYTES # (AUTO) 0.3 K/uL (0.1-1.0); MONOCYTES % (AUTO) 5.2 % (2.0-9.0); NEUTROPHILS # (AUTO) 4.5 K/uL (1.8-7.7); PLATELET COUNT (AUTO) 91 K/uL (150-450); RED BLOOD CELL COUNT(AUTO) 4.24 MIL/uL (4.50-5.90)
[2022-12-21 01:16] LABS: INR 1.2 (0.9-1.1); PROTHROMBIN TIME 12.6 SEC (9.4-11.6)
[2022-12-21 01:17] LABS: ABG TOTAL HEMOGLOBIN 12.9 G/dL (12.0-18.0); SOURCE, BLOOD GAS ARTERIAL; TEMPERATURE, FAHRENHEIT, BG 95.2 FAHREN (96.0-98.6)
[2022-12-21 01:19] LABS: ALBUMIN 2.2 g/dL (3.4-5.0); BILIRUBIN,DIRECT 1.5 mg/dL (0.00-0.20); BILIRUBIN,TOTAL 2.1 mg/dL (0.1-1.0); CALCIUM, TOTAL 7.7 mg/dL (8.8-10.5); CREATININE 9.08 mg/dL (0.60-1.30); MAGNESIUM 3.1 mg/dL (1.80-2.40); POTASSIUM 4.3 mmol/L (3.5-5.1); TOTAL PROTEIN, SERUM 6.6 g/dL (6.4-8.2)
[2022-12-21 01:20] LABS: ABG A-A DIFF O2 331.3 mmHg (10-20.0); ABG BASE EXCESS -2.6 mmol/L (-2.0-3.0); ABG CARBOXYHEMOGLOBIN 0.1 % (0.0-3.0); ABG HCO3 22.8 mmol/L (22.0-26.0); ABG OXYGEN SATURATION 99.6 % (95.0-98.0); ABG OXYHEMOGLOBIN 99.5 % (94.0-100.0); ABG PCO2 33 mmHg (35-45); O2 DEVICE,BLOOD GAS VENT (ROOM AIR); PEEP,BG 5 cm H2O; PO2, ARTERIAL BG 353.9 mmHg (80.0-100.0); SITE, BLOOD GAS ARTERIAL LINE; VT, ABG 600 ml
[2022-12-21 01:26] LABS: LACTIC ACID 1.2 mmol/L (0.4-2.0)
[2022-12-21 01:45] LABS: NEUTROPHILS % (AUTO) 87.7 % (40.0-70.0)
[2022-12-21] MEDS ORDERED: HEPARIN SODIUM,PORCINE 1,000 UNITS/ML VIAL IVCATH ONE ×2 (02:30)
[2022-12-21 04:06] LABS: BASOPHILS % (AUTO) 0.3 % (0.0-2.0); EOSINOPHILS % (AUTO) 0.1 % (1.0-6.0); HEMATOCRIT 34.9 % (41-53); HEMOGLOBIN 11.9 g/dL (13.5-17.5); LYMPHOCYTES # (AUTO) 0.4 K/uL (1.0-4.8); LYMPHOCYTES % (AUTO) 7.2 % (22.0-44.0); MEAN CORPUSCULAR HGB CONC 34.2 G/dL (31.0-37.0); MEAN CORPUSCULAR VOLUME 85 fL (80-100); MONOCYTES # (AUTO) 0.4 K/uL (0.1-1.0); MONOCYTES % (AUTO) 7.6 % (2.0-9.0); NEUTROPHILS # (AUTO) 4.3 K/uL (1.8-7.7); NEUTROPHILS % (AUTO) 84.8 % (40.0-70.0); PLATELET COUNT (AUTO) 91 K/uL (150-450); RED BLOOD CELL COUNT(AUTO) 4.12 MIL/uL (4.50-5.90); RED CELL DISTRIBUTION WIDTH 13.9 % (11.5-14.5)
[2022-12-21 04:07] LABS: ABG BASE EXCESS 0.7 mmol/L (-2.0-3.0); ABG CARBOXYHEMOGLOBIN 0.1 % (0.0-3.0); ABG HCO3 25.3 mmol/L (22.0-26.0); ABG METHEMOGLOBIN 0.3 % (0.0-1.5); ABG OXYGEN CONTENT 17.7 mL/dL (15.0-23.0); ABG OXYGEN SATURATION 98.3 % (95.0-98.0); ABG OXYHEMOGLOBIN 97.9 % (94.0-100.0); ABG PCO2 34 mmHg (35-45); ABG PH 7.478 (7.350-7.450); ABG TOTAL HEMOGLOBIN 12.7 G/dL (12.0-18.0); SOURCE, BLOOD GAS ARTERIAL; TEMPERATURE, FAHRENHEIT, BG 95.2 FAHREN (96.0-98.6)
[2022-12-21 04:08] LABS: ABG A-A DIFF O2 130.5 mmHg (10-20.0); O2 DEVICE,BLOOD GAS VENT (ROOM AIR); PEEP,BG 5 cm H2O; SITE, BLOOD GAS ARTERIAL LINE; VT, ABG 600 ml
[2022-12-21 04:16] LABS: INR 1.2 (0.9-1.1); PROTHROMBIN TIME 12.7 SEC (9.4-11.6)
[2022-12-21 04:26] LABS: ALBUMIN 2.1 g/dL (3.4-5.0); BILIRUBIN,DIRECT 1.4 mg/dL (0.00-0.20); CALCIUM, TOTAL 7.6 mg/dL (8.8-10.5); CREATININE 7.33 mg/dL (0.60-1.30); MAGNESIUM 2.8 mg/dL (1.80-2.40); PHOSPHORUS 7.7 mg/dL (2.5-4.9); POTASSIUM 4.2 mmol/L (3.5-5.1); TOTAL PROTEIN, SERUM 6.4 g/dL (6.4-8.2)
[2022-12-21 04:49] LABS: ABG CARBOXYHEMOGLOBIN 0.3 % (0.0-3.0); ABG HCO3 24.1 mmol/L (22.0-26.0); ABG METHEMOGLOBIN 0.3 % (0.0-1.5); ABG OXYGEN SATURATION 99.7 % (95.0-98.0); ABG OXYHEMOGLOBIN 99.1 % (94.0-100.0); ABG PCO2 32 mmHg (35-45); ABG PH 7.473 (7.350-7.450); ABG TOTAL HEMOGLOBIN 12.7 G/dL (12.0-18.0); PO2, ARTERIAL BG 471.6 mmHg (80.0-100.0); SOURCE, BLOOD GAS ARTERIAL; TEMPERATURE, FAHRENHEIT, BG 95.2 FAHREN (96.0-98.6)
[2022-12-21 04:50] LABS: ABG A-A DIFF O2 214.5 mmHg (10-20.0); O2 DEVICE,BLOOD GAS VENT (ROOM AIR); PEEP,BG 5 cm H2O; SITE, BLOOD GAS ARTERIAL LINE; VT, ABG 600 ml
[2022-12-21 04:51] LABS: LACTIC ACID 1.8 mmol/L (0.4-2.0)
[2022-12-21] MEDS: HydrALAZINE HCL 20 MG/ML VIAL IVP PRN (06:00)
[2022-12-21] MEDS: PIPERACILLIN SODIUM/TAZOBACTAM 2.25 GM in DEXTROSE 5%-WATER 50 ML IV SCH ×2 (06:00→13:10)
[2022-12-21] MEDS: DOCUSATE SODIUM 100 MG CAPSULE PO SCH (09:00)
[2022-12-21 09:07] LABS: BAND NEUTROPHILS % (MANUAL) 0 % (0-5)
[2022-12-21 09:10] LABS: HEMATOCRIT 35.6 % (41-53); HEMOGLOBIN 11.9 g/dL (13.5-17.5); MEAN CORPUSCULAR HEMOGLOBIN 28.2 pg (26.0-34.0); MEAN CORPUSCULAR HGB CONC 33.4 G/dL (31.0-37.0); MEAN CORPUSCULAR VOLUME 85 fL (80-100); PLATELET COUNT (AUTO) 92 K/uL (150-450); RED BLOOD CELL COUNT(AUTO) 4.21 MIL/uL (4.50-5.90); RED CELL DISTRIBUTION WIDTH 13.7 % (11.5-14.5)
[2022-12-21 09:21] LABS: INR 1.3 (0.9-1.1)
[2022-12-21 09:26] LABS: LYMPHOCYTES % (MANUAL) 5 % (22-44); MONOCYTES % (MANUAL) 3 % (2-9); SEGMENTED NEUTROPHILS % 92 % (40-70)
[2022-12-21 09:35] LABS: LACTIC ACID 1.7 mmol/L (0.4-2.0)
[2022-12-21 10:23] LABS: ABG BASE EXCESS -1.6 mmol/L (-2.0-3.0); ABG CARBOXYHEMOGLOBIN 0.2 % (0.0-3.0); ABG HCO3 23.3 mmol/L (22.0-26.0); ABG METHEMOGLOBIN 0.3 % (0.0-1.5); ABG OXYGEN CONTENT 17.2 mL/dL (15.0-23.0); ABG OXYGEN SATURATION 95.7 % (95.0-98.0); ABG OXYHEMOGLOBIN 95.2 % (94.0-100.0); ABG PCO2 38 mmHg (35-45); ABG PH 7.406 (7.350-7.450); ABG TOTAL HEMOGLOBIN 12.8 G/dL (12.0-18.0); SITE, BLOOD GAS ARTERIAL LINE; SOURCE, BLOOD GAS ARTERIAL; TEMPERATURE, FAHRENHEIT, BG 95.8 FAHREN (96.0-98.6)
[2022-12-21 10:24] LABS: ABG A-A DIFF O2 167.5 mmHg (10-20.0); O2 DEVICE,BLOOD GAS VENTILATOR (ROOM AIR); PEEP,BG 5 cm H2O; VT, ABG 600 ml
[2022-12-21 10:57] LABS: ABG CARBOXYHEMOGLOBIN 0.1 % (0.0-3.0); ABG HCO3 23.7 mmol/L (22.0-26.0); ABG METHEMOGLOBIN 0.3 % (0.0-1.5); ABG OXYGEN CONTENT 19.3 mL/dL (15.0-23.0); ABG OXYGEN SATURATION 99.7 % (95.0-98.0); ABG OXYHEMOGLOBIN 99.3 % (94.0-100.0); ABG PCO2 41 mmHg (35-45); ABG PH 7.388 (7.350-7.450); O2 DEVICE,BLOOD GAS VENTILATOR (ROOM AIR); PO2, ARTERIAL BG 409.8 mmHg (80.0-100.0); SITE, BLOOD GAS ARTERIAL LINE; SOURCE, BLOOD GAS ARTERIAL; TEMPERATURE, FAHRENHEIT, BG 96.1 FAHREN (96.0-98.6); VT, ABG 600 ml
[2022-12-21 10:58] LABS: PEEP,BG 5 cm H2O
[2022-12-21 11:02] LABS: ALBUMIN 2.1 g/dL (3.4-5.0); BILIRUBIN,DIRECT 1.2 mg/dL (0.00-0.20); BILIRUBIN,TOTAL 1.8 mg/dL (0.1-1.0); CALCIUM, TOTAL 7.2 mg/dL (8.8-10.5); CREATININE 8.29 mg/dL (0.60-1.30); MAGNESIUM 2.9 mg/dL (1.80-2.40); POTASSIUM 4.4 mmol/L (3.5-5.1); TOTAL PROTEIN, SERUM 6.4 g/dL (6.4-8.2)
[2022-12-21 11:14] LABS: PHOSPHORUS 9.4 mg/dL (2.5-4.9)
[2022-12-21 13:38] LABS: HEMATOCRIT 36.4 % (41-53); HEMOGLOBIN 12.5 g/dL (13.5-17.5); MEAN CORPUSCULAR HEMOGLOBIN 29.2 pg (26.0-34.0); MEAN CORPUSCULAR HGB CONC 34.4 G/dL (31.0-37.0); MEAN CORPUSCULAR VOLUME 85 fL (80-100); PLATELET COUNT (AUTO) 97 K/uL (150-450); RED BLOOD CELL COUNT(AUTO) 4.28 MIL/uL (4.50-5.90); RED CELL DISTRIBUTION WIDTH 13.9 % (11.5-14.5)
[2022-12-21 13:50] LABS: INR 1.3 (0.9-1.1)
[2022-12-21 13:51] LABS: ALBUMIN 2.2 g/dL (3.4-5.0); BILIRUBIN,DIRECT 1.2 mg/dL (0.00-0.20); BILIRUBIN,TOTAL 1.7 mg/dL (0.1-1.0); CALCIUM, TOTAL 7.1 mg/dL (8.8-10.5); CREATININE 9.11 mg/dL (0.60-1.30); MAGNESIUM 3.1 mg/dL (1.80-2.40); POTASSIUM 4.9 mmol/L (3.5-5.1); TOTAL PROTEIN, SERUM 6.7 g/dL (6.4-8.2)
[2022-12-21 13:59] LABS: BAND NEUTROPHILS % (MANUAL) 2 % (0-5); LYMPHOCYTES % (MANUAL) 5 % (22-44); MONOCYTES % (MANUAL) 6 % (2-9); SEGMENTED NEUTROPHILS % 87 % (40-70)
[2022-12-21 14:11] LABS: LACTIC ACID 1.3 mmol/L (0.4-2.0)
[2022-12-21 14:12] LABS: PHOSPHORUS 9.8 mg/dL (2.5-4.9)
[2022-12-21 16:02] LABS: APPEARANCE,URINE HAZY (CLEAR); BILIRUBIN,URINE NEGATIVE (NEGATIVE); GLUCOSE, URINE (UA) TRACE mg/dL (NEGATIVE); KETONES,URINE NEGATIVE (NEGATIVE); LEUKOCYTE ESTERASE ,URINE SMALL (NEGATIVE); NITRATE,URINE NEGATIVE (NEGATIVE); OCCULT BLOOD,URINE LARGE (NEGATIVE); PROTEIN,URINE 100-200,SEE CONFIRM mg/dL (NEGATIVE); UROBILINOGEN,URINE <=1.0 mg/dL (<=1.0)
[2022-12-21 16:10] LABS: BACTERIA,URINE Moderate /HPF (None Seen); SQUAMOUS EPITHELIAL CELL,UR Rare /LPF (None Seen); WBC,URINE 26-50 /HPF (0-5)
[2022-12-21 16:12] LABS: SULFOSALICYLIC ACID,URINE 3+ (Negative)
[2022-12-21 16:17] LABS: ABG BASE EXCESS -4.7 mmol/L (-2.0-3.0); ABG CARBOXYHEMOGLOBIN 0.7 % (0.0-3.0); ABG HCO3 20.8 mmol/L (22.0-26.0); ABG METHEMOGLOBIN 0.3 % (0.0-1.5); ABG OXYGEN CONTENT 17.4 mL/dL (15.0-23.0); ABG OXYGEN SATURATION 94.4 % (95.0-98.0); ABG OXYHEMOGLOBIN 93.5 % (94.0-100.0); ABG PCO2 41 mmHg (35-45); ABG PH 7.333 (7.350-7.450); ABG TOTAL HEMOGLOBIN 13.2 G/dL (12.0-18.0); PO2, ARTERIAL BG 82.5 mmHg (80.0-100.0); SOURCE, BLOOD GAS ARTERIAL; TEMPERATURE, FAHRENHEIT, BG 98.5 FAHREN (96.0-98.6)
[2022-12-21 16:18] LABS: ABG A-A DIFF O2 155.9 mmHg (10-20.0); O2 DEVICE,BLOOD GAS VENTILATOR (ROOM AIR); PEEP,BG 5 cm H2O; SITE, BLOOD GAS ARTERIAL LINE; VT, ABG 600 ml
[2022-12-21 16:58] LABS: ABG A-A DIFF O2 249.8 mmHg (10-20.0); ABG BASE EXCESS -2.8 mmol/L (-2.0-3.0); ABG CARBOXYHEMOGLOBIN 0.3 % (0.0-3.0); ABG METHEMOGLOBIN 0.1 % (0.0-1.5); ABG OXYGEN CONTENT 19.7 mL/dL (15.0-23.0); ABG OXYGEN SATURATION 99.7 % (95.0-98.0); ABG OXYHEMOGLOBIN 99.3 % (94.0-100.0); ABG PCO2 47 mmHg (35-45); ABG PH 7.311 (7.350-7.450); ABG TOTAL HEMOGLOBIN 13.3 G/dL (12.0-18.0); O2 DEVICE,BLOOD GAS VENTILATOR (ROOM AIR); PEEP,BG 5 cm H2O; PO2, ARTERIAL BG 415.3 mmHg (80.0-100.0); SITE, BLOOD GAS ARTERIAL LINE; SOURCE, BLOOD GAS ARTERIAL; VT, ABG 16 ml
[2022-12-21 17:13] LABS: HEMOGLOBIN 12.3 g/dL (13.5-17.5); MEAN CORPUSCULAR HEMOGLOBIN 28.2 pg (26.0-34.0); MEAN CORPUSCULAR HGB CONC 33.4 G/dL (31.0-37.0); MEAN CORPUSCULAR VOLUME 85 fL (80-100); PLATELET COUNT (AUTO) 113 K/uL (150-450); RED BLOOD CELL COUNT(AUTO) 4.38 MIL/uL (4.50-5.90); RED CELL DISTRIBUTION WIDTH 13.9 % (11.5-14.5)
[2022-12-21 17:25] LABS: INR 1.2 (0.9-1.1); PROTHROMBIN TIME 12.7 SEC (9.4-11.6)
[2022-12-21] MEDS: VANCOMYCIN 1GM/WATER(PEG/NADA) 200 ML IV SCH (17:26)
[2022-12-21 17:29] LABS: ALBUMIN 2.3 g/dL (3.4-5.0); BILIRUBIN,DIRECT 1.1 mg/dL (0.00-0.20); BILIRUBIN,TOTAL 1.6 mg/dL (0.1-1.0); CREATININE 9.48 mg/dL (0.60-1.30); MAGNESIUM 3.2 mg/dL (1.80-2.40); POTASSIUM 5.7 mmol/L (3.5-5.1); TOTAL PROTEIN, SERUM 6.8 g/dL (6.4-8.2)
[2022-12-21 17:31] LABS: BAND NEUTROPHILS % (MANUAL) 1 % (0-5); EOSINOPHILS % (MANUAL) 1 % (1-6); LYMPHOCYTES % (MANUAL) 12 % (22-44); MONOCYTES % (MANUAL) 8 % (2-9); SEGMENTED NEUTROPHILS % 78 % (40-70)
[2022-12-21 17:34] LABS: LACTIC ACID 1.3 mmol/L (0.4-2.0)
[2022-12-21] MEDS ORDERED: VASOPRESSIN 40 UNITS in DEXTROSE 5%-WATER 98 ML IV PRN (19:15)
[2022-12-21] MEDS ORDERED: DOPamine 400MG/D5W[STANDARD] 250 ML IV PRN (19:15)
[2022-12-21] MEDS ORDERED: DEXTROSE 50%-WATER 25 GM/50 ML SYRINGE IVP ONE (20:08)
[2022-12-21] MEDS ORDERED: PHENYLEPHRINE HCL 10 MG/ML VIAL IVP ONE (21:00)
[2022-12-21] MEDS ORDERED: 0.9% SODIUM CHLORIDE 10 ML VIAL IVP ONE (21:00)
[2022-12-21] MEDS ORDERED: POVIDONE-IODINE 10% 15 ML SOLUTION UD ONE (21:07)
[2022-12-21] MEDS ORDERED: POVIDONE-IODINE 5% 30 ML OPHTHALMIC SOLUTION ONE (21:08)
[2022-12-21] MEDS ORDERED: RINGERS SOLUTION,LACTATED 0 ML IV ONE (21:16)
[2022-12-22] LABS: ABG CARBOXYHEMOGLOBIN 0.3 % (0.0-3.0); ABG HCO3 17.9 mmol/L (22.0-26.0); ABG OXYGEN CONTENT 16.2 mL/dL (15.0-23.0); ABG OXYHEMOGLOBIN 98.7 % (94.0-100.0); ABG PCO2 35 mmHg (35-45); ABG PH 7.307 (7.350-7.450); ABG TOTAL HEMOGLOBIN 11.3 G/dL (12.0-18.0); PO2, ARTERIAL BG 209.4 mmHg (80.0-100.0); SOURCE, BLOOD GAS ARTERIAL; TEMPERATURE, FAHRENHEIT, BG 98.5 FAHREN (96.0-98.6)
[2022-12-22 00:01] LABS: O2 DEVICE,BLOOD GAS VENTILATOR (ROOM AIR); PEEP,BG 7 cm H2O; SITE, BLOOD GAS ART LINE; VT, ABG 650 ml
[2022-12-22 00:29] LABS: ABG BASE EXCESS -8.4 mmol/L (-2.0-3.0); ABG CARBOXYHEMOGLOBIN 0.3 % (0.0-3.0); ABG HCO3 18.1 mmol/L (22.0-26.0); ABG OXYGEN CONTENT 15.4 mL/dL (15.0-23.0); ABG OXYGEN SATURATION 99.1 % (95.0-98.0); ABG OXYHEMOGLOBIN 98.8 % (94.0-100.0); ABG PCO2 40 mmHg (35-45); ABG TOTAL HEMOGLOBIN 10.7 G/dL (12.0-18.0); PO2, ARTERIAL BG 226.5 mmHg (80.0-100.0); SOURCE, BLOOD GAS ARTERIAL; TEMPERATURE, FAHRENHEIT, BG 98.6 FAHREN (96.0-98.6)
[2022-12-22 00:32] LABS: ABG PH 7.279 (7.350-7.450)
[2022-12-22 00:33] LABS: O2 DEVICE,BLOOD GAS VENTILATOR (ROOM AIR); SITE, BLOOD GAS ART LINE; VT, ABG 650 ml
[2022-12-22 00:34] LABS: PEEP,BG 7 cm H2O
== END 2022-12-22 09:32 | DRG 812 ==
LOC: EMS 23:46 → EDBD 23:46 → ICU 12-13 08:53
PROVIDERS: ADMIT Internal Medicine; ATTEND Internal Medicine
PROC: 0BH17EZ Insertion of Endotracheal Airway into Trachea, Via Natural or Artificial Opening (ICD-10-PCS; principal; 2022-12-13)
PROC: 5A1955Z Respiratory Ventilation, Greater than 96 Consecutive Hours (ICD-10-PCS; 2022-12-13)
PROC: 04HY32Z Insertion of Monitoring Device into Lower Artery, Percutaneous Approach (ICD-10-PCS; 2022-12-13)
PROC: 0DH67UZ Insertion of Feeding Device into Stomach, Via Natural or Artificial Opening (ICD-10-PCS; 2022-12-13)
PROC: 02HV33Z Insertion of Infusion Device into Superior Vena Cava, Percutaneous Approach (ICD-10-PCS; 2022-12-13)
PROC: 0B9G8ZX Drainage of Left Upper Lung Lobe, Via Natural or Artificial Opening Endoscopic, Diagnostic (ICD-10-PCS; 2022-12-17)
PROC: 0B978ZZ Drainage of Left Main Bronchus, Via Natural or Artificial Opening Endoscopic (ICD-10-PCS; 2022-12-17)
PROC: 0B938ZZ Drainage of Right Main Bronchus, Via Natural or Artificial Opening Endoscopic (ICD-10-PCS; 2022-12-17)
PROC: 5A1D70Z Performance of Urinary Filtration, Intermittent, Less than 6 Hours Per Day (ICD-10-PCS; 2022-12-17)
PROC: 06HY33Z Insertion of Infusion Device into Lower Vein, Percutaneous Approach (ICD-10-PCS; 2022-12-17)
PROC: B54BZZA Ultrasonography of Right Lower Extremity Veins, Guidance (ICD-10-PCS; 2022-12-17)
PROC: 5A1D70Z Performance of Urinary Filtration, Intermittent, Less than 6 Hours Per Day (ICD-10-PCS; 2022-12-18)
PROC: 5A1D70Z Performance of Urinary Filtration, Intermittent, Less than 6 Hours Per Day (ICD-10-PCS; 2022-12-20)
DX: T40.411A Poisoning by fentanyl or fentanyl analogs, accidental (unintentional), initial encounter (principal); A41.50 Gram-negative sepsis, unspecified; I46.9 Cardiac arrest, cause unspecified; J96.01 Acute respiratory failure with hypoxia; G93.1 Anoxic brain damage, not elsewhere classified; M62.82 Rhabdomyolysis; N17.0 Acute kidney failure with tubular necrosis; R65.21 Severe sepsis with septic shock; Z20.822 Contact with and (suspected) exposure to COVID-19; R40.20 Unspecified coma; F11.10 Opioid abuse, uncomplicated; F12.10 Cannabis abuse, uncomplicated; E87.4 Mixed disorder of acid-base balance; E87.6 Hypokalemia; R74.01 Elevation of levels of liver transaminase levels; E11.9 Type 2 diabetes mellitus without complications; Y92.89 Other specified places as the place of occurrence of the external cause; Z99.11 Dependence on respirator [ventilator] status; Z99.2 Dependence on renal dialysis
CPT/HCPCS: 31624; 36245; 36569; 36600; 51702; 70450; 71045; 71260; 72125; 72193; 74160; 76937; 78606; 80048; 80053; 80307; 81001; 81002; 82150; 82247; 82248; 82550; 82805; 83605; 83690; 83735; 84100; 84132; 84145; 84484; 85007; 85025; 85027; 85610; 85730; 87015; 87040; 87070; 87077; 87081; 87086; 87186; 87205; 87206; 87340; 88305; 88331; 90935; 93005; 93306; 94002; 94003; 99291; A9521; C9113; G0238; G0378; G0480; J0360; J1265; J1644; J1940; J2370; J2543; J2930; J3480; J3490; J7030; J7040; J7050; J7060; J7120; P9046; Q9967; 36415-L1; 36415-TC